=== PATIENT | male | born 1945 | race Caucasian/White ===

== ENCOUNTER 2024-11-24 17:20 | Inpatient (IN) | payer MEDICARE, SELFPAY ==
[2024-11-24 17:37] VITALS: BP 169/112; PULSE 73; RESP 18; TEMP 36.5; O2SAT 96; BMI 29.0
[2024-11-24] MEDS: Haloperidol Lactate 5 MG/ML Vial 2 MG IM (17:47)
--- NOTE | 2024-11-24 17:53 | HP.PCM_ITS ---
HPI - General General Date of Admission: 11/24/24 Chief Complaint: Post stroke debility HPI Narrative LISA KAUFFMAN, is a 79YO M with a PMH of AF, DM, HTN, GERD, CM? (on Entresto and Lasix) history of asthma, osteoarthritis, hyperlipidemia, pacemaker insertion, BPH (on Flomax and Proscar) and KILLIAN (on BIPAP) who presented to [facility] on 11/16/24 with speech difficulties. STAT NC CTB showed no acute findings. CTA of the H&N showed Inhomogenous opacification of the petrous portion of the right internal carotid artery suspicious for soft thrombus and a left MCA occlusion. He was transferred to [facility] for possible thrombectomy. He was outside the window for thrombolytics and he was on Apixaban. Attempted thrombectomy was unsuccessful. CTA H&N at [facility] showed multifocal moderate/severe degrees of calcific stenosis of the anterior and posterior intracranial circulation. It showed a previous R carotid endarterectomy without restenosis. Thrombectomy was attempted but, was unsuccessful. While at [facility] he was intubated for neurogenic and hypoxic respiratory failure. He was extubated within 48 hours. Transthoracic echocardiogram showed an EF of 75% (he was on Entresto and Lasix at the time he presented to [facility] ED) with right ventricular dilation, right atrial dilation and no valvular heart disease. TSH was normal and hemoglobin A1c was 6%. MRI of the brain on 11/21/2024 showed a large acute infarct within the left middle cerebral artery distribution with additional punctate acute infarcts within the bilateral frontal lobes. Review of the PT notes from [facility] states the pt participated well. He requires MAX cues to get his attention. Receptive>expressive aphasia. Pt apparently expressed suicidal ideation while at [facility]. We were NOT informed of this prior to his transfer to [facility] acute rehab and I am only learning of this after he got here. He was seen by a SW who documents that he stated he endorsed he wanted to . He has severe receptive and expressive aphasia and SW documents he had no plan for how he was going to kill himself. He is so aphasic at arrival to rehab that I do not know how he would answer most of the questions he was asked. He is very agitated at arrival and restless. Will not follow commands. BP is markedly elevated due to agitation. [facility] Medical History (Updated 04/18/25 @ 17:[address] Yoanna Camargo, DO) Pacemaker BPH associated with nocturia Right ventricular dilation Right atrial enlargement History of cardiomyopathy Obstructive sleep apnea Hypertension Dyslipidemia Atrial fibrillation, controlled Asthma Arthritis Home Medications ?Medication ?Instructions ?Recorded ?Last Taken ?Type acetaminophen 325 mg capsule 650 mg PO Q6H PRN pain Unknown History amiodarone 400 mg tablet 400 mg PO DAILY heart Unknown History apixaban 5 mg tablet (Eliquis) 5 mg PO BID heart 11/24 Unknown History aspirin 81 mg tablet,delayed 81 mg PO DAILY heart 11/08 03/03 Unknown History release (Ecotrin Low Strength) calcium 600 mg (as carbonate)-vit 1 tab PO DAILY vitam in 11/24/24 Unknown History D3 1,000 unit-vitamin K2 90 mcg tab cholecalciferol (vitamin D3) 25 25 mcg PO DAILY supp 0 11/24/24 Unknown History mcg (1,000 unit) capsule (Vitamin D3) digoxin 250 mcg (0.25 mg) tablet 250 mcg PO DAILY hear t 11/24/24 Unknown History empagliflozin 25 mg tablet 25 mg PO DAILY dm 11/24/24 Unknown History (Jardiance) finasteride 5 mg tablet 5 mg PO DAILY bladder Unknown History furosemide 40 mg tablet 40 mg PO DAILY diuretic 11/08 03/03 Unknown History omeprazole 10 mg capsule,delayed 20 mg PO DAILY gerd 0 11/24/24 Unknown History release polyethylene glycol 3350 8.5 gram 17 g PO DAILY consti pation 11/24/24 Unknown History oral powder packet rosuvastatin 40 mg tablet 40 mg PO QHS cholesterol Unknown History sacubitril 49 mg-valsartan 51 mg 1 tab PO BID heart Unknown History tablet (Entresto) sertraline 20 mg/mL oral 25 mg PO DAILY mood 11/24/24 Unknown History concentrate tamsulosin 0.4 mg capsule 0.4 mg PO DAILY bladder 11/08 03/03 Unknown History Allergy/AdvReac Type Severity Reaction Status Date / Time No Known Allergies Allergy Verified 11/24/24 17:40 Family History unable to obtain unable to obtain (Patient with severe aphasia) Surgical History (Updated 11/25/24 @ 17:[address] Yoanna Camargo DO) History of right-sided carotid endarterectomy Surgical History unable to obtain unable to obtain Social History (Updated 11/25/24 @ 17:[address] Yoanna Camargo, ) household members: significant other housing: house Smoking Status: Never smoker ROS Review of Systems ROS Unobtainable: due to mental status and other Details: Unable to obtain secondary to severe receptive aphasia and severe expressive aphasia due to CVA. Vital Signs Vital Signs Vital Signs: Weight Weight: 232 lb 4 oz Body Mass Index (BMI) 29.0 Indicators for Scoring Admitted with or Primary Diagnosis of CVA/Stroke: Yes Hx of CVA/Stroke: Yes Modified Hamilton Score MRS Score at time of Evaluation: 4-Moderate/severe disability (Due to severe receptive and expressive aphasia grossly impacting his ability to communicate.) NIHSS NIHSS 1a. Level of Consciousness: 0 - Alert; keenly responsive 1b. LOC Questions: 2 - Answers NEITHER question correctly 1c. LOC Commands: 1 - Performs ONE task correctly 2. Best Gaze: 1 - Normal 3. Visual: 0 - No visual loss 4. Facial Palsy: 0 - Normal symmetrical movements 5a. Left Arm: 0 - No drift; arm holds 90 (or 45) degrees for full 10 seconds 5b. Right Arm: 0 - No drift; arm holds 90 (or 45) degrees for full 10 seconds 6a. Left Le - No drift; leg holds 30-degree position for full 5 seconds 6b. Right Le - No drift; leg holds 30-degree position for full 5 seconds 7. Limb Ataxia: 0 - Absent 8. Sensory: 0 - Normal; no sensory loss 9. Best Language: 2 - Severe aphasia; 10. Dysarthria: 1 = [id number] dysarthria; 11. Extinction and Inattention: 0 - No abnormality Total: 6 Stroke Questions Stroke Team Activated: No Physical Exam Const alert and well nourished Constitutional Narrative: not very cooperative and agitated initially. Got more cooperative after 2 mg of Haldol IM. Follows some commands. Able to mimic me when I give visual clues. Appears stated age. HEENT normocephalic and head/scalp atraumatic Eyes PERRL, EOMs intact bilaterally, conjunctivae normal, no scleral icterus and normal visual lugo by confrontation Eyes Narrative: No discharge from the eyes Neck supple General: trachea midline Chest Chest: symmetrical chest wall rise Resp normal respiratory effort, normal air movement and clear to auscultation bilaterally Resp Narrative: Not tachypneic. Respiration is not labored. No cough. Cardio regular rate, regular rhythm, no murmurs, no rub and no gallops Cardio Narrative: Rhythm is regular and rate is within normal limits. EKG shows AV pacing. No ectopy GI normal to inspection, nondistended, normoactive bowel sounds, soft to palpation and non-tender GI Narrative: No guarding with palpation Extremity no calf tenderness Extremity Narrative: No peripheral edema General Extremity: Negative for clubbing or cyanosis Skin no rashes or lesions noted, no wounds and no jaundice Neuro Neuro Narrative: He is alert and able to follow some commands, especially if given visual cues of what I want him to do. Moving all extremities. Able to get up from the bed without assistance . Impulsive. No visual field cuts observed. Cranial nerves II through XII are grossly intact. Does not seem to have sensory loss. Not ataxic. Exam is limited by his inability to follow commands and thus participate with exam. Primary problem seems to be expressive/receptive aphasia which is severe. Psych Psych Narrative: Very agitated at admission. His tells me he has been having visual hallucinations but no auditory hallucinations. Very impulsive. Required sedation at presentation to acute rehab. His tells me that he has been irritable and agitated with her the past 2 days. Attitude: agitated Activity / Motor Behavior: fidgetting and restless Results Lab / Micro Data 11/25/24 06:15 11/25/24 06:15 Assessment & Plan Assessment/Plan (1) Debility: (2) Diabetes mellitus type 2 in nonobese: (3) Ischemic cerebrovascular accident (CVA): (4) Aphasia complicating stroke: (5) History of right-sided carotid endarterectomy: (6) Agitation requiring sedation protocol: (7) History of cardiomyopathy: (8) Right atrial enlargement: (9) Right ventricular dilation: (10) Obstructive sleep apnea: (11) Hypertension: QUALIFIERS: Hypertension type: primary hypertension Qualified Code(s): I10 - Essential (primary) hypertension (12) Dyslipidemia: (13) Atrial fibrillation, controlled: (14) GERD (gastroesophageal reflux disease): QUALIFIERS: Esophagitis presence: esophagitis presence not specified Qualified Code(s): K21.9 - Gastro-esophageal reflux disease without esophagitis (15) BPH associated with nocturia: (16) Pacemaker: (17) Cystitis without hematuria: PLAN: More likely than not secondary to Yeager catheter insertion at the previous institution. (18) Chronic anticoagulation: PLAN: Plan PLAN PT for gait stability OT for ADL's ST for evaluation Analgesics as needed Bowel protocol Fall precautions Assess for Anxiety/Depression GI prophylaxis -pantoprazole DVT prophylaxis-continue apixaban Follow up with cardiology, PCP, neurology following DC from [facility] AM lab including CMP, CBC, Mag, digoxin and Phos Seroquel 25 mg p.o. nightly Haldol 1 mg IM every 6 hours as needed severe agitation Will obtain a UA due to urinary frequency and increased agitation in the past 2 days. Obtain records from Dr. Royal at [facility] Postvoid residuals x 3. Continue Flomax and Proscar Place in a high low bad because he is impulsive and getting up without calling for assistance. Bed alarm and chair alarms. 75 minutes spent reviewing past diagnostic tests, lab results, vital sign trends, medical history, medications, all additional paperwork sent by the previous hospital, and ordering medications, examining the the patient and completing documentation.
--- NOTE | 2024-11-24 17:57 | EKG12_ITS ---
Test Reason : DYSRHYTHMIA Blood Pressure : */* mmHG Vent. Rate : 71 BPM Atrial Rate : 71 BPM P-R Int : 148 ms QRS Dur : 198 ms QT Int : 482 ms P-R-T Axes : * 230 42 degrees QTcB Int : 523 ms AV dual-paced rhythm Abnormal ECG No previous ECGs available Confirmed by MYNOR YOUNG, LENA ([id number]), metropolitan editor MARY SKINNER ([id number]) on 11/28/2024 10:38:33 AM Referred By: RIVERA Confirmed By: LENA LOWE MD
--- NOTE | 2024-11-24 18:11 | NURSING ---
Pt. arrived to unit very frustrated and aggressive. This nurse and RN talked to pt. and explained why he was here. Pt. continuously stated I want to in response to any of nurses question. Physician notified of pt. behavior. N.O. for IM Haldol. Medication given in R Deltoid. This nurse sat with pt. and attempted to reorientate and help pt. relax, following administration of medication. Medication ineffective with helping pt. relax and relieve anxiety. Physician ordered for peripheral line to be started on pt. This nurse explained to pt. procedure and attempted to start peripheral IV. Pt. pulled arm away from this nurse and stated No, I want to . This nurse remained at pt. side during this time. Pt. and friend entered pt. room shortly after. Pt. demeanor and behavior changed. Pt. appeared to be no longer agitated and stated no intent of or harm to self.
[2024-11-24 19:32] VITALS: BP 141/78; PULSE 69
[2024-11-24 21:00] VITALS: BP 133/80; PULSE 70; RESP 17; TEMP 36.7; O2SAT 94
[2024-11-24] MEDS: Atorvastatin Calcium 80 MG Tablet PO (21:35)
[2024-11-24] MEDS: NYSTATIN 500,000 UNIT/5 ML UDC 500000 UNIT PO (21:35)
[2024-11-24] MEDS: Senna/Docusate Sodium 1 Tablet 2 TABLET PO (21:35)
[2024-11-24] MEDS: APIXABAN 5 MG TABLET PO (21:35)
[2024-11-24] MEDS: QUEtiapine 25 MG Tablet PO (21:35)
[2024-11-24] MEDS: SACUBITRIL/VALSARTAN 49-51 MG TABLET 1 EACH PO (21:36)
[2024-11-25 06:00] VITALS: BP 146/100; PULSE 94; RESP 16; TEMP 36.5; O2SAT 97
--- NOTE | 2024-11-25 06:09 | NURSING ---
Pt refused BS check hs. This a.m. when pt was taken to for toileting, pt refused to allow a urine catch for urinalysis. Pt tossed container and said he wouldn't do it. Pt became aggressive at bedtime when up for toileting. Pt has refused gait belt despite staff explaining the safety protocol on the rehab unit. Pt has pushed wheeled walker to the side with defiance.
[2024-11-25 06:42] LABS: Hematocrit 40.4 % (40-54); Hemoglobin 13.2 g/dL (13.0-16.5); Mean Corp Hgb Conc 32.7 g/dL (32-36); Mean Corpuscular Hgb 28.6 pg (27.0-32.0); Mean Corpuscular Volume 87.4 fL (80-94); Mean Platelet Vol. 9.6 fl (6.2-12.0); Platelet Count 177 K/mm3 (150-450); RBC Distribution Width CV 14.9 % (11.6-14.6); RBC Distribution Width SD 48.3 fl (35.1-43.9); Red Blood Count 4.62 M/mm3 (4.6-6.2); White Blood Count 6.3 K/mm3 (4.4-11.0)
[2024-11-25 07:13] LABS: ALB/GLOB Ratio 1.4 RATIO (0.9-2.4); AST(SGOT) 22 U/L (<=37); Alanine Aminotransfer ALT/SGPT 15 U/L (<=46); Albumin, Serum 3.8 g/dL (3.4-4.8); Alkaline Phosphatase 91 U/L (40-129); Anion Gap 12 (5-15); BUN 23 mg/dL (4-19); BUN/Creat Ratio 17.7 RATIO (10-20); Calcium,Total 8.7 mg/dL (7.6-11.0); Carbon Dioxide 23.5 mmol/L (21.0-32.0); Chloride 100 mmol/L (98-108); Creatinine, Serum 1.28 mg/dL (0.70-1.20); EST Glomerular Filtration Rate 56 (>60); Estimated Creatinine Clearance 59.43 ml/min (50-250); Globulin 2.8 g/dL (2.2-4.2); Glucose 75 mg/dL (70-99); Magnesium 2.2 mg/dL (1.5-2.2); Phosphorus 3.1 mg/dL (2.7-4.5); Potassium 3.4 mmol/L (3.3-5.1); Protein, Total 6.7 g/dL (5.9-8.4); Sodium Level 136 mmol/L (133-145); Total Bilirubin 1.18 mg/dL (0.00-1.30)
[2024-11-25 07:28] LABS: Bedside Glucose 77 mg/dL (74-106)
[2024-11-25] MEDS: NYSTATIN 500,000 UNIT/5 ML UDC 500000 UNIT PO ×4 (09:02→20:27)
[2024-11-25] MEDS: Furosemide 40 MG Tablet PO (09:02)
[2024-11-25] MEDS: Polyethylene Glycol 3350 17 GM PACKET PO (09:02)
[2024-11-25] MEDS: Senna/Docusate Sodium 1 Tablet 2 TABLET PO ×2 (09:02→20:26)
[2024-11-25] MEDS: Sertraline 50 MG Tablet 25 MG PO (09:02)
[2024-11-25] MEDS: Pantoprazole Sodium 20 MG Tablet PO (09:03)
[2024-11-25] MEDS: Tamsulosin HCl 0.4 MG Capsule PO (09:03)
[2024-11-25] MEDS: Amiodarone 200 MG Tablet 400 MG PO (09:03)
[2024-11-25] MEDS: APIXABAN 5 MG TABLET PO ×2 (09:03→20:27)
[2024-11-25] MEDS: Cholecalciferol (VIT D3) 25 MCG TABLET (1,000 UNITS) PO (09:03)
[2024-11-25] MEDS: Empagliflozin 25 MG Tablet PO (09:03)
[2024-11-25] MEDS: Calcium Carb/Vitamin D 1 TABLET Tablet PO (09:03)
[2024-11-25] MEDS: Finasteride 5 MG Tablet PO (09:03)
[2024-11-25] MEDS: Digoxin 250 MCG Tablet PO (09:03)
[2024-11-25] MEDS: SACUBITRIL/VALSARTAN 49-51 MG TABLET 1 EACH PO ×2 (09:03→20:27)
[2024-11-25] MEDS: Aspirin E.C. 81 MG Tablet PO (09:03)
[2024-11-25] MEDS: QUEtiapine 25 MG Tablet 12.5 MG PO (09:04)
--- NOTE | 2024-11-25 09:50 | CASEMGMT ---
Social Work SW left with to complete initial assessment d/t pt's severe expressive and receptive aphasia. Pt received hand off from - nursing that d/t pt's constant statements of wanting to , a Barre Suicide Assessment was completed and was a low risk - noting to plan/intent/past attempts. D/t pt's severe cognition and speech deficits. SW and staff will continue to monitor as pt admitted with aggressive and agitated behavior. spoke with upon admission and informed her that if pt is unable to resolve behavior, he will need to transfer to another facility that can better meet his needs. Elizabeth Barnett EQUAL OPPORTUNITY REPRESENTATIVE MOLD BLOWER
--- NOTE | 2024-11-25 09:56 | REHABEVAL_ITS ---
Admission Information Primary Diagnosis:: Post stroke debility Status Changes from Prescreening?: Medical (We were not informed by the previous hospital that the patient had expressed a desire to kill himself. I found this out ONLY after he arrived on rehab. He was very agitated at admission and required sedation. ) Actual Problem List:: Cognitve Impr/Memory Loss, Depression (On sertraline at admission to rehab.), Alteration in Sleep, Mobility Impaired, Self Care Deficit, Know.Dfct of Medicaitons, BP, Hypertension and Alteration-Leisure Activ. Potential Problem List:: DVT, Bleeding, Infection, UTI, Aspiration, Falls, Skin Integrity and Depression Risk of Complications DVT: BORIS Hose and - (Apixaban) Bleeding: Monitor Lab Values, Nursing to Teach Precautions for anti-coagulation therapy., Wound, if applicable, to be assessed every shift. and Stroke patients assessed for lethargy or change in status. Infection: Clinical Staff to Monitor for S/S of infection: and S/S of infection include fever, redness, warmth, etc. Urinary Tract Infection: Monitor for frequency, burning, discomfort, or incontinence. and Nursing will obtain urine sample for urinalysis and C&S when ordered. Aspiration: Clinical staff will monitor for coughing, drooling, congestion., Speech will evaluate swallowing and dsyphasia. and Nursing will monitor patient swallowing during meals. Falls: Patient will be evaluated for Fall Precautions and Patient will be placed on Fall Precautions as indicated per protocol. Skin Breakdown: Nursing will assess skin daily using assessment tool. and Nursing will place on Skin Breakdown Precautions as indicated. Pain: Clinical staff will assess patient's pain level per protocol., Medications will be given, if needed, and the pain level reassessed. and Other methods: Massage, distraction, decrease stimulus, etc. used PRN. Plan of Care Patient requires physician specializing in physical medicine and rehab oversight to provide close medical supervision of rehab issues including: Pain Management, Sleep Problems, Bowel and Bladder, Medical and co-morbidity Management, DVT prophylaxis, Rehabilitation Leadership and Coordination of treatment team Patient needs Physical Therapy: For a minimum of 1 hour and At least 5 out of 7 days Patient needs Physical Therapy to improve:: Mobility, Strengthening, Transfers, Stretching, ROM, Endurance, Stairs, Gait and Balance Patient needs Occupational Therapy: For a minimum of 1 hour and At least 5 out of 7 days Patient needs Occupational Therapy to improve ADL's incl.: Eating, Grooming, Bathing, Dressing, Toileting, Toilet transfers, Community Reintegration, Higher functioning activities, Household tasks, Adaptive Equipment, Splinting and Other activities as determined Patient requires speech therapy: For a minimum of 1 hour and At least 5 out of 7 days Patient requires speech therapy for: Swallowing, Cognition, Language Skills and Compensatory Strategies Patient requires 24/7 Rehabilitation Nursing for: Pain Issues, Identifying and preventing risk factors, Monitoring and reporting current medical conditions, Assisting with ambulation, transfer, and all ADL's, Teaching patients about disease process and medications, Family teaching, Providing safe environment, Bowel and Bladder Issues, Skin integrity and Medication Management Patient needs Lead Quality Technician/ Case Management for: Discharge Planning, Arranging Home Equipment or Services and Family Interventions Patient needs Dietary and Nutrition Services for: Adequate Nutrition, Nutritional Supplements and Nutritional Education Goals Goals Patient will remain: free from falls Patient will perform eating at: MOD I level of assist. Patient will perform bed mobility at: MOD I level of assist. Patient will complete transfers from bed to chair at: - (Supervision) Patient will ambulate: - (500 feet on various surfaces at supervision) Patient will complete upper body dressing at: MOD I level of assist. Patient will complete lower body dressing at: MOD I level of assist. (With the equipment as needed.) Patient will complete toilet transfer at: MOD I level of assist. Patient will complete toileting at: MOD I level of assist. Patient will perform bathing at: MOD I level of assist. (With adaptive equipment as needed for lower body dressing) Patient will perform Tub/Shower transfer at: - (Supervision) Patient will complete grooming at: MOD I level of assist. Patient will achieve: - (13 steps with 2 handrails at standby assist) Patient will have pain level of: of 3 or less Patient's skin will: remain intact Patient will receive: adequate nutrition. Discharge Planning Pt Prognosis for Sig. Practical Improv. w/in Reasonable Time: Good Estimated Length of stay (days): 21 Anticipated D/C Destination: Home with Outpt Therapy Was Preadmission Assessment Accurate?: Yes
[2024-11-25 10:04] VITALS: BP 132/84
[2024-11-25 10:49] LABS: Digoxin Level 1.27 ng/mL (0.00-2.00)
[2024-11-25 11:33] LABS: Bedside Glucose 91 mg/dL (74-106)
[2024-11-25 13:54] LABS: Mucous, Urine 0 SEEN /hpf (<or=2+); Red Blood Cells-Urine 0 SEEN /hpf (0-5); Squamous Epithelial Cells - UA 0 SEEN /hpf (0-5)
[2024-11-25 14:44] LABS: Color, Urine Yellow (Yellow); Glucose, Dipstick 1000 mg/dl (Normal); Ketone-Dipstick Negative (Negative); Leukocyte Esterase-Dipstick 500 /ul (Negative); Nitrite-Dipstick Negative (Negative); Occult Blood-Urine 25 /ul (Negative); Protein-Dipstick 30 mg/dl (Negative); Specific Gravity, Urine 1.015 (1.002-1.030); Urine Bilirubin Dipstick Negative (Negative); Urine Clarity Sl. Cloudy (Clear); Urine Urobilinogen 8 mg/dl (Normal)
[2024-11-25 14:59] LABS: White Blood Cells 50-100 SEEN /hpf (0-5)
[2024-11-25 15:03] LABS: Coarse Granular Cast 0-5 SEEN /lpf (0-5 /lpf)
[2024-11-25 15:04] LABS: Bacteria 1+ /hpf (None Seen)
[2024-11-25 15:05] LABS: Amorphous Sediment 1+ URATE
[2024-11-25 16:59] LABS: Bedside Glucose 150 mg/dL (74-106)
[2024-11-25 17:33] VITALS: BP 126/83; PULSE 70; RESP 18; TEMP 36.4; O2SAT 94
--- NOTE | 2024-11-25 17:39 | PN_ITS ---
Subjective Subjective Afebrile Blood pressure has ranged from 126/83 to 169/112 at admission. He was very agitated at that time and needed to be sedated. Heart rate is within normal limits Maintaining appropriate oxygen saturation on room air Nursing reports he slept pretty well last night after Seroquel. This morning he was very impulsive and through the urine hat across the room. Refused to give a urine specimen last night and refused accucheck. Did not need a sitter after Haldol and Seroquel. FBS was only 77 this morning. Severe oral fluid intake today. Has eaten 75 to 100% of breakfast and lunch today. Was given 12.5 mg Seroquel this AM for agitation and he was cooperative with therapists and with nursing when they did accuchecks and a strainght for urine. All lab from this morning was personally reviewed. CBC is unremarkable. Potassium is low normal at 3.4. The BUN is 23 and the creatinine is 1.28 and we do not know his baseline. GFR today is 56. Calcium phosphorus and magnesium are all normal. LFTs are normal. The urine obtained by straight cath showed 50-100 WBCs with 1+ bacteria. There were no red blood cells. There was proteinuria. Urine culture has been ordered. Objective Data Objective Data Vital Signs: Vital Signs Temp Pulse Resp BP Pulse Ox O2 Del Method 97.6 F L 70 18 126/83 H 94 Room Air 11/25/24 17:33 11/25/24 17:33 11/25/24 17:33 11/25/24 17:33 11/25/24 17:33 11/25/24 17:33 Oxygen Delivery Method Room Air Weight: 232 lb 4 oz Body Mass Index (BMI) 29.0 Intake & Output: Intake and Output for Last 24 Hours 11/23/24 11/24/24 11/25/24 23:59 23:59 23:59 Intake Total 60 / 60 1290 / 1290 Output Total 400 / 400 Balance 60 / 60 890 / 890 Lab / Micro Data 11/25/24 06:15 11/25/24 06:15 Labs: Laboratory Results - last 24 hr 11/25/24 06:05: POC Glucose 77 11/25/24 06:15: WBC 6.3, RBC 4.62, Hgb 13.2, Hct 40.4, MCV 87.4, MCH 28.6, MCHC 32.7, RDW Std Deviation 48.3 H, RDW Coeff of [place]ile[place] 14.9 H, Plt Count 177, MPV 9.6, Sodium 136, Potassium 3.4, Chloride 100, Carbon Dioxide 23.5, Anion Gap 12, BUN 23 H, Creatinine 1.28 H, Estim Creat Clear Calc 59.43, Est GFR (MDRD) Non-Af 56 L, BUN/Creatinine Ratio 17.7, Glucose 75, Calcium 8.7, Phosphorus 3.1, Magnesium 2.2, Total Bilirubin 1.18, AST 22, ALT 15, Alkaline Phosphatase 91, Total Protein 6.7, Albumin 3.8, Globulin 2.8, Albumin/Globulin Ratio 1.4, Digoxin 1.27 11/25/24 11:14: POC Glucose 91 11/25/24 13:45: Urine Color Yellow, Urine Clarity Sl. Cloudy, Urine pH 6.0, Ur Specific [place] 1.015, Urine Protein 30 H, Urine Glucose (UA) 1000 H, Urine Ketones Negative, Urine Occult Blood 25 H, Urine Nitrite Negative, Urine Bilirubin Negative, Urine Urobilinogen 8 H, Ur Leukocyte Esterase 500 H, Urine RBC 0 SEEN, Urine WBC 50-100 SEEN, Ur Squamous Epith Cells 0 SEEN, Amorphous Sediment 1+ URATE, Urine Bacteria 1+, Coarse Granular Casts 0-5 SEEN, Urine Mucus 0 SEEN 11/25/24 16:37: POC Glucose 150 H Physical Exam Const alert Constitutional Narrative: Much more cooperative today. Resp clear to auscultation bilaterally Effort and Inspection: Negative for tachypneic or respiratory distress Cardio regular rate, regular rhythm, no murmurs and no gallops GI normal to inspection, nondistended, normoactive bowel sounds, soft to palpation and non-tender Extremity no calf tenderness General Extremity: Negative for edema Skin Rashes: no rashes Assessment & Plan Assessment/Plan (1) Debility: (2) Diabetes mellitus type 2 in nonobese: (3) Ischemic cerebrovascular accident (CVA): (4) Aphasia complicating stroke: (5) History of right-sided carotid endarterectomy: (6) Agitation requiring sedation protocol: (7) History of cardiomyopathy: (8) Right atrial enlargement: (9) Right ventricular dilation: (10) Obstructive sleep apnea: (11) Hypertension: QUALIFIERS: Hypertension type: primary hypertension Qualified Code(s): I10 - Essential (primary) hypertension (12) Dyslipidemia: (13) Atrial fibrillation, controlled: (14) GERD (gastroesophageal reflux disease): QUALIFIERS: Esophagitis presence: esophagitis presence not specified Qualified Code(s): K21.9 - Gastro-esophageal reflux disease without esophagitis (15) BPH associated with nocturia: (16) Pacemaker: (17) Cystitis without hematuria: PLAN: More likely than not secondary to Yeager catheter insertion at the previous institution. (18) Chronic anticoagulation: PLAN: Plan 1. Continue therapy 2. Continue Seroquel 25 mg p.o. nightly and 12.5 mg every morning. Will attempt to taper in a few days if he continues to be cooperative 3. Start Augmentin suspension 875 mg twice daily and await the results of the urine culture. He has had 1 postvoid residual and it was 220 cc. Will obtain at least 2 more postvoid residuals 4. Decrease Jardiance to 10 mg daily. Need to avoid hypoglycemia and the fasting blood sugar was only 77 today recent hemoglobin A1c was only 6% and in this age range there is no need to keep it that low. Continue Accu-Cheks AC and at bedtime. Charges/Coding Visit Charges Inpatient E&M: 09743 Subs Hosp L1
[2024-11-25 20:25] VITALS: PULSE 70; RESP 18; O2SAT 94
[2024-11-25] MEDS: QUEtiapine 25 MG Tablet PO (20:27)
[2024-11-25] MEDS: Atorvastatin Calcium 80 MG Tablet PO (20:27)
[2024-11-25 21:27] LABS: Bedside Glucose 132 mg/dL (74-106)
[2024-11-26 06:00] VITALS: BP 115/76; PULSE 69; RESP 16; TEMP 36.3; O2SAT 95
[2024-11-26] MEDS: QUEtiapine 25 MG Tablet 12.5 MG PO (06:30)
[2024-11-26 06:51] LABS: Bedside Glucose 103 mg/dL (74-106)
[2024-11-26] MEDS: Finasteride 5 MG Tablet PO (08:07)
[2024-11-26] MEDS: APIXABAN 5 MG TABLET PO ×2 (08:07→20:45)
[2024-11-26] MEDS: Senna/Docusate Sodium 1 Tablet 2 TABLET PO (08:07)
[2024-11-26] MEDS: Cholecalciferol (VIT D3) 25 MCG TABLET (1,000 UNITS) PO (08:07)
[2024-11-26] MEDS: Empagliflozin 10 MG Tablet PO (08:07)
[2024-11-26] MEDS: SACUBITRIL/VALSARTAN 49-51 MG TABLET 1 EACH PO ×2 (08:07→20:45)
[2024-11-26] MEDS: Calcium Carb/Vitamin D 1 TABLET Tablet PO (08:07)
[2024-11-26] MEDS: Tamsulosin HCl 0.4 MG Capsule PO (08:07)
[2024-11-26] MEDS: Digoxin 250 MCG Tablet PO (08:07)
[2024-11-26] MEDS: Aspirin E.C. 81 MG Tablet PO (08:07)
[2024-11-26] MEDS: Amiodarone 200 MG Tablet 400 MG PO (08:08)
[2024-11-26] MEDS: Furosemide 40 MG Tablet PO (08:08)
[2024-11-26] MEDS: NYSTATIN 500,000 UNIT/5 ML UDC 500000 UNIT PO ×4 (08:08→20:45)
[2024-11-26] MEDS: Pantoprazole Sodium 20 MG Tablet PO (08:09)
[2024-11-26] MEDS: Sertraline 50 MG Tablet 25 MG PO (08:10)
[2024-11-26] MEDS: Amox/Clav 400mg/5ml Susp 875 MG PO ×2 (08:12→17:17)
[2024-11-26] MEDS: Polyethylene Glycol 3350 17 GM PACKET PO (08:20)
[2024-11-26 08:22] VITALS: BP 99/61; PULSE 71
[2024-11-26 08:30] VITALS: O2SAT 94
--- NOTE | 2024-11-26 08:30 | CPS ---
Addendum entered and electronically signed by Rose Mary Daley, BEVELER 11/26/24 09:08: He got the device while at [facility]. Original Note: Pt already has an Incentive Spirometer and knows how to use it.
[2024-11-26 12:01] LABS: Bedside Glucose 109 mg/dL (74-106)
[2024-11-26 18:00] VITALS: BP 119/77; PULSE 70; RESP 16; TEMP 37.1; O2SAT 93
[2024-11-26] MEDS: QUEtiapine 25 MG Tablet PO (20:44)
[2024-11-26] MEDS: Arthritis Pain Compound 60 CLICK TUBE TOPICAL (20:44)
[2024-11-26] MEDS: Atorvastatin Calcium 80 MG Tablet PO (20:45)
[2024-11-26 22:33] LABS: Bedside Glucose 111 mg/dL (74-106)
[2024-11-27] MEDS: QUEtiapine 25 MG Tablet 12.5 MG PO (06:12)
[2024-11-27 06:15] VITALS: BP 107/68; PULSE 71; RESP 17; TEMP 36.4; O2SAT 92
[2024-11-27 07:01] LABS: Bedside Glucose 111 mg/dL (74-106)
[2024-11-27] MEDS: Pantoprazole Sodium 20 MG Tablet PO (07:36)
[2024-11-27] MEDS: Finasteride 5 MG Tablet PO (07:36)
[2024-11-27] MEDS: APIXABAN 5 MG TABLET PO ×2 (07:36→19:58)
[2024-11-27] MEDS: Tamsulosin HCl 0.4 MG Capsule PO (07:36)
[2024-11-27] MEDS: Calcium Carb/Vitamin D 1 TABLET Tablet PO (07:36)
[2024-11-27] MEDS: Empagliflozin 10 MG Tablet PO (07:36)
[2024-11-27] MEDS: Digoxin 250 MCG Tablet PO (07:36)
[2024-11-27] MEDS: Cholecalciferol (VIT D3) 25 MCG TABLET (1,000 UNITS) PO (07:36)
[2024-11-27] MEDS: Sertraline 50 MG Tablet 25 MG PO (07:37)
[2024-11-27] MEDS: SACUBITRIL/VALSARTAN 49-51 MG TABLET 1 EACH PO ×2 (07:37→19:57)
[2024-11-27] MEDS: Aspirin E.C. 81 MG Tablet PO (07:38)
[2024-11-27] MEDS: Furosemide 40 MG Tablet PO (07:38)
[2024-11-27] MEDS: Amiodarone 200 MG Tablet 400 MG PO (07:38)
[2024-11-27] MEDS: Amox/Clav 400mg/5ml Susp 875 MG PO ×2 (07:39→16:43)
[2024-11-27 08:15] VITALS: O2SAT 92
[2024-11-27] MEDS: NYSTATIN 500,000 UNIT/5 ML UDC 500000 UNIT PO (11:07)
[2024-11-27 11:45] LABS: Bedside Glucose 141 mg/dL (74-106)
[2024-11-27 16:24] LABS: Bedside Glucose 127 mg/dL (74-106)
[2024-11-27 18:00] VITALS: BP 108/75; PULSE 70; RESP 17; TEMP 36.3; O2SAT 96
[2024-11-27] MEDS: Atorvastatin Calcium 80 MG Tablet PO (19:57)
[2024-11-27] MEDS: QUEtiapine 25 MG Tablet PO (19:58)
[2024-11-27 20:20] LABS: Bedside Glucose 139 mg/dL (74-106)
--- NOTE | 2024-11-27 20:45 | NURSING ---
Patient requested HS meds early and provided.
[2024-11-27 21:00] VITALS: BP 114/75; PULSE 71
[2024-11-28] VITALS (11 sets, daily range): BP systolic 69–137; BP diastolic 40–89; PULSE 69–80; RESP 16–18; TEMP 35.8–36.8; O2SAT 91–98
[2024-11-28] MEDS: QUEtiapine 25 MG Tablet 12.5 MG PO (06:28)
[2024-11-28 07:07] LABS: Bedside Glucose 103 mg/dL (74-106)
--- NOTE | 2024-11-28 08:08 | PCM.PROGNOTE ---
Subjective Subjective Day #4 of 7 ampicillin for Enterococcus faecalis urinary tract infection/cystitis. Miguel Angel was seen on team rounds today. Miguel Angel's Courtney was present in the room. Afebrile VSS - Maintaining appropriate oxygen saturation on RA Oral intake - FOOD fair to good. Refused lunch yesterday but then ate 50 to 74% of his dinner. FLUIDS fair The blood sugar record was reviewed and blood sugars are well-controlled with no hypoglycemia. Jardiance was decreased to 10 mg daily last week. Discussed with nursing -refusing all meds this morning.....spit them out Reviewed the THERAPY notes -nursing reports he refused therapy on Thursday....intermittently refusing therapy. Medication list reviewed. Urine culture grew Enterococcus faecalis. It is sensitive to ampicillin. It is resistant to gentamicin and tetracycline. Tells me that he just wants to today. Was started on Sertraline on Thursday. Not cooperating. Eating is erratic. Slept well last night after Seroquel but, refusing meds today. Does not appear to be in any distress. He was laying in the bed with his eyes closed when I entered the room. Not agitated. Not restless. Objective Data Objective Data Vital Signs: Vital Signs Temp Pulse Resp BP Pulse Ox O2 Del Method 98 F 70 16 131/81 H 97 Room Air 11/28/24 06:36 11/28/24 06:36 11/28/24 06:36 11/28/24 06:36 11/28/24 06:44 11/28/24 06:44 Oxygen Delivery Method Room Air Weight: 232 lb 4 oz Body Mass Index (BMI) 29.0 Intake & Output: Intake and Output for Last 24 Hours 11/26/24 11/27/24 11/28/24 23:59 23:59 23:59 Intake Total 960 / 960 1160 / 1160 Output Total 1000 / 1000 Balance 960 / 960 160 / 160 Lab / Micro Data 11/25/24 06:15 11/25/24 06:15 Labs: Laboratory Results - last 24 hr 11/27/24 11:27: POC Glucose 141 H 11/27/24 16:01: POC Glucose 127 H 11/27/24 20:01: POC Glucose 139 H 11/28/24 06:32: POC Glucose 103 Micro: Microbiology 11/25/24 13:45 Urine Catheter - Catheter Urine Culture - Final Enterococcus faecalis Physical Exam Const Constitutional Narrative: Lying in bed with his eyes closed but arouses easily. Telling me he wants to . Poor cooperation with therapy today. Not restless or agitated now. Resp clear to auscultation bilaterally Resp Narrative: Patent bed without tachypnea or labored respirations. Cardio regular rate, regular rhythm and no gallops GI normal to inspection, nondistended, normoactive bowel sounds, soft to palpation and non-tender GI Narrative: No guarding with palpation Extremity Extremity Narrative: Did not withdraw with compression of the calf or dorsiflexion of the foot. General Extremity: Negative for edema Skin Rashes: no rashes Neuro Neuro Narrative: Severe receptive and expressive aphasia. Did not participate with speech today. Psych Mood & Affect: depressed Assessment & Plan Assessment/Plan (1) Debility: (2) Diabetes mellitus type 2 in nonobese: (3) Ischemic cerebrovascular accident (CVA): (4) Aphasia complicating stroke: (5) History of right-sided carotid endarterectomy: (6) Agitation requiring sedation protocol: (7) History of cardiomyopathy: (8) Right atrial enlargement: (9) Right ventricular dilation: (10) Obstructive sleep apnea: (11) Hypertension: QUALIFIERS: Hypertension type: primary hypertension Qualified Code(s): I10 - Essential (primary) hypertension (12) Dyslipidemia: (13) Atrial fibrillation, controlled: (14) GERD (gastroesophageal reflux disease): QUALIFIERS: Esophagitis presence: esophagitis presence not specified Qualified Code(s): K21.9 - Gastro-esophageal reflux disease without esophagitis (15) BPH associated with nocturia: (16) Pacemaker: (17) Cystitis without hematuria: PLAN: More likely than not secondary to Yeager catheter insertion at the previous institution. (18) Chronic anticoagulation: (19) Acute depression: PLAN: Plan 1. Continue therapy 2. Increase sertraline to 50 mg daily 3. Continue Seroquel as previously ordered he is cooperative sometimes and sometimes is doing therapy. Did not really do anything with ST today.......getting very frustrated. 4. D/W Courtney that he may be cut by insurance because he is not able to do 3 hours of therapy daily. We talked about options/plans for DC if he gets cut. We are going to have Courtney come in tomorrow and be with Miguel Angel when ST is working with him........hopefully he will be more cooperative. We also discussed a geropsych referral to get depression under better control. He would do OK with going home as far as PT/OT concerned but, would need 24/7 supervision. SW to give Courtney options for assistance with home care. He is ambulating without an AD currently. I do not feel he is going to make much progress with therapy if the depression is not controlled. Decreased appetite, sleeping more, poor articipation with therapy, saying he wants to . 5. Hold the AM dose of Seroquel tomorrow. Could try switching to Risperdal for less sedation if decreasing the Seroquel to once a day fails. Charges/Coding Visit Charges Inpatient E&M: 26003 Subs Hosp L2
--- NOTE | 2024-11-28 11:10 | CASEMGMT ---
Social Work SW phoned to complete initial assessment and broach DC plans. Per Dr and IDT, pt is still unable to cooperate with nursing care and therapy, and requesting pt DC to SNF. SW completed assessment. stated she does not know where the advance directives are located to provide copies, but she is HCPOA. Pt is not able to complete new documents. stated pt drove, managed meds and finances prior. SW discussed criteria for RU, i.e. 3 hours/day of therapy. Despite medication adjustment from , IDT is recommending pt DC to SNF. Pt is not appropriate for this unit for continued stay. Nursing reported pt is spitting out his pills, too. SW educated to [facility] insurance NRD 11/29, and they too, may issue DC date given pt is not appropriate for the unit. Explained this worker's role to assist with DC planing. SW offered to provide list of SNFs that are INN with pt's insurance, though insurance can deny that stay as well. inquired about taking pt home. SW offered for to hear Team's report at meeting this afternoon before making a DC decision. However, DC home is an option, as SNF is only a recommendation. SW offered resources for to hire assistance in the home, and this worker can coordinate skilled HHC. appreciative of information and will await Team meeting for further discussion. SW will continue to follow. Elizabeth Barnett MSW MIXER OPERATOR TABLETS
[2024-11-28 12:01] LABS: Bedside Glucose 103 mg/dL (74-106)
--- NOTE | 2024-11-28 12:48 | CASEMGMT ---
Social Work IDT met with patient and for Team meeting. Discussed patient's progress in PT/OT/ST/SN. Educated to [facility] insurance with NRD 11/29 and continued stay is not guaranteed with each review. spoke with about pt having a better day today with therapy, but still to plan for DC. Insurance may not approve continued stay. IDT discussed home vs SNF. Pt is physically functioning well, but needs 24/7 CGA for safety, physically, cognitively and for language in the case of an emergency. Explained in detail option for home option - provided resources for private duty home care, [facility] and medical alert; skilled HHC, anticipated duration and frequency. Explained in detail SNF - insurance can approve, which is skilled therapy and explained anticipated duration and frequency, and if insurance denies, pt can pay OOP for room and board, and bill part B for therapies. noted that if pt is not cooperating or participating in services at this level, he will likely not cooperate at a SNF, and she would opt to take pt home. then [facility] to [facility] in managing pt's depression, to potentially assist with cooperation and participation in a rehab setting. SW educated to insurance coverage, options are not local, they do not do therapy, but focus on intensive mental health. Once pt is stabilized, he can be discharged to home or a SNF. unsure about the option but agreeable to send referrals to see if pt is accepted and what location. does not drive out of town and that is not ideal for him to not be local. SW acknowledged. SW explained for to process information, begin contacting [employer], while this worker refers to [facility], and can present options to for her to make a final decision. Explained can deny, even after getting an acceptance. expressed understanding. SW to remain available to support and assist with DC planning. appreciative. Elizabeth Barnett BIOLOGICAL SCIENCE AIDE TEAM LEADER SURGERY
--- NOTE | 2024-11-28 15:59 | CASEMGMT ---
Addendum entered by Elizabeth Barnett 11/28/24 16:52: [facility] [place] [facility] central intake contacted this worker asking additional medical questions. Will continue to review and notify this worker of acceptance/denial. Original Note: Social Work SW began contacting [facility]. Assurance [facility] is full; [facility] is full, but [facility] has beds; [facility] is full. Referrals faxed to [facility] and [facility]. Will await outcomes before pursuing other facilities. Elizabeth Barnett INDUSTRIAL LOCOMOTIVE OPERATOR REHABILITATION CASEWORKER
[2024-11-28 16:57] LABS: Bedside Glucose 93 mg/dL (74-106)
[2024-11-28] MEDS: Arthritis Pain Compound 60 CLICK TUBE TOPICAL (19:57)
[2024-11-28] MEDS: QUEtiapine 25 MG Tablet PO (19:58)
[2024-11-28] MEDS: APIXABAN 5 MG TABLET PO (19:58)
[2024-11-28] MEDS: SACUBITRIL/VALSARTAN 49-51 MG TABLET 1 EACH PO (19:59)
[2024-11-28] MEDS: Senna/Docusate Sodium 1 Tablet 2 TABLET PO (19:59)
[2024-11-28] MEDS: Atorvastatin Calcium 80 MG Tablet PO (20:01)
[2024-11-28] MEDS: 0.9% Normal Saline (1000mL) 1,000 ML 999 ML IV ×2 (21:20→21:50)
--- NOTE | 2024-11-28 21:35 | EKG12_ITS ---
Test Reason : LOOM FIXER Blood Pressure : */* mmHG Vent. Rate : 81 BPM Atrial Rate : 80 BPM P-R Int : * ms QRS Dur : 172 ms QT Int : 460 ms P-R-T Axes : * 224 40 degrees QTcB Int : 534 ms Ventricular-paced rhythm with occasional Premature ventricular complexes Abnormal ECG When compared with ECG of 24-Nov-2024 18:17, Premature ventricular complexes are now Present Vent. rate has increased by 10 bpm Confirmed by MYNOR YOUNG, LENA ([id number]), editorial manager MARY SKINNER ([id number]) on 11/30/2024 8:55:02 AM Referred By: Confirmed By: LENA LOWE MD
--- NOTE | 2024-11-28 21:36 | PCM.HOSP.N ---
Hospitalist Note Rapid response was called overhead at approximately 9:25 PM. Patient was standing up urinating when he suddenly had severe hypotension in the ~60/40 mmHg range. A review of his recent medications shows that he was recently given Entresto which is likely the culprit agent which has been held. He was bolused 2 L normal saline with labs and ABG done showing no acute pathologic changes other than mildly elevated troponin T of 58 ng/L with patient having no complaints related to chest pain. He was then transferred to PCU and ordered 25 g of IV albumin once to correct his hypotension with blood pressure of 91/65 mmHg at 2238 hrs.
[2024-11-28 21:38] LABS: Bedside Glucose 145 mg/dL (74-106)
[2024-11-28 21:45] LABS: Allen Test Positive; Base Excess -6 mmol/L (-2 to +2); Blood Gas Specimen Type ART; Mode Not entered; O2 Delivery Device Cannula; PO2 90 mmHG (75-100); SITE L Radial; SO2 97 % (95-99); Total Carbon Dioxide 20 mmol/L; pCO2 32.9 mmHg (35-45); pH 7.37 (7.35-7.45)
--- NOTE | 2024-11-28 21:52 | ED.RN ---
Patient was assisted to the bathroom. Patient began to slump forward and the nurse grabbed the patient and set him on her knee. Patient was unresponsive and patient was placed in wheel chair. Rapid response was called. Patient was placed in bed and was diaphoretic. Blood glucose was 145 and patient was hypotensive (69/40). Two IVs were placed and fluids were given. Patient became more responsive. Current BP is 85\53.
[2024-11-28 21:54] LABS: Absolute Lymphocyte Count 2.77 X10^3/uL (0.83-4.51); Absolute Neutrophil Count 5.8 X10^3/uL (2.0-7.7); Basophil# 0.05 X10^3/uL; Basophil% 0.5 % (0-1); Eosinophil# 0.14 X10^3/uL; Eosinophils% 1.4 % (0-5); Hematocrit 43.8 % (40-54); Hemoglobin 14.3 g/dL (13.0-16.5); Lymphocyte # 2.77 X10^3/ul (0.83-4.51); Lymphocyte % 28.4 % (19-41); Mean Corp Hgb Conc 32.6 g/dL (32-36); Mean Corpuscular Hgb 28.9 pg (27.0-32.0); Mean Corpuscular Volume 88.7 fL (80-94); Mean Platelet Vol. 9.9 fl (6.2-12.0); Monocyte# 0.97 X10^3/uL; Monocyte% 9.9 % (0-10); NRBC Flagged by Analyzer 0 % (0-5); Neutrophil # 5.78 X10^3/uL (2.7-7.7); Neutrophil % 59.3 % (47-70); Platelet Count 217 K/mm3 (150-450); RBC Distribution Width CV 15.2 % (11.6-14.6); RBC Distribution Width SD 48.8 fl (35.1-43.9); Red Blood Count 4.94 M/mm3 (4.6-6.2); White Blood Count 9.8 K/mm3 (4.4-11.0)
[2024-11-28 22:26] LABS: ALB/GLOB Ratio 0.5 RATIO (0.9-2.4); AST(SGOT) 27 U/L (<=37); Alanine Aminotransfer ALT/SGPT 15 U/L (<=46); Alkaline Phosphatase 81 U/L (40-129); Anion Gap 18 (5-15); BUN 30 mg/dL (4-19); BUN/Creat Ratio 19.4 RATIO (10-20); Calcium,Total 7.9 mg/dL (7.6-11.0); Carbon Dioxide 17.7 mmol/L (21.0-32.0); Chloride 103 mmol/L (98-108); Creatinine, Serum 1.56 mg/dL (0.70-1.20); EST Glomerular Filtration Rate 44 (>60); Estimated Creatinine Clearance 48.77 ml/min (50-250); Globulin 4.4 g/dL (2.2-4.2); Glucose 129 mg/dL (70-99); Potassium 3.6 mmol/L (3.3-5.1); Protein, Total 6.4 g/dL (5.9-8.4); Sodium Level 139 mmol/L (133-145); Total Bilirubin 0.85 mg/dL (0.00-1.30); Troponin T High Sensitivity 58 ng/L (<=22)
--- NOTE | 2024-11-28 22:55 | ED.RN ---
Nurse called , Courtney. Updated on current events regarding the rapid response and transfer to PCU.
--- NOTE | 2024-11-28 22:55 | PCM.HP.STD ---
[facility] General General Date of Admission: 11/24/24 Date of Service: 11/28/24 Chief Complaint: Iatrogenic Hypotension after Entresto in the setting of Post-stroke Debility. HPI Narrative LISA KAUFFMAN, is a 79 M with a past medical history of essential hypertension on sacubitril-losartan and furosemide, hyperlipidemia; on rosuvastatin, overweight; with a BMI of 29 this admission, KILLIAN; on BiPAP, history of atrial fibrillation; on amiodarone, digoxin and apixaban, history of arrhythmia; s/p PPM, history of carotid stenosis; s/p right CEA, DM-2; well-controlled on Jardiance with recent hemoglobin A1c of 6%, depression; on sertraline, BPH; on finasteride and tamsulosin, GERD; on omeprazole, OA and recent presentation to [facility] on November 16, 2024 with speech difficulties with CTA of the brain showing inhomogenous opacification of the petrous portion of the Right internal carotid artery suspicious for soft thrombus in the Left MCA occlusion with patient and transferred to [facility] for possible thrombectomy because he was outside the window for thrombolytics and he was on apixaban; s/p unsuccessful thrombectomy with patient intubated for neurogenic and hypoxic respiratory failure with subsequent extubation within ~48 hours with subsequent transthoracic echocardiogram showing LVEF ~75% with RV dilatation and RA dilatation and no valvular disease with MRI of the brain revealing large acute infarct within the Left middle cerebral artery distribution with additional punctate acute infarcts within the bilateral frontal lobes with clinically noted severe receptive and expressive aphasia with patient then admitted here to the acute rehabilitation unit on by Dr. Camargo on November 24, 2024 with patient noted to be very agitated and restless and not following commands with blood pressure markedly elevated due to agitation with patient then subsequently treated with Haldol 2 mg IM x 1 with patient stating intermittently that he wants to . According to the notes patient was set up for a minimum of 1 hour physical therapy at least 5 out of 7 days. On November 25, 2024 he was noted to have labile blood pressure from 126/83-162/112 mmHg with associated agitation requiring sedation after resting well the previous night with Seroquel. He had a UA on November 25, 2024 that revealed elevated leukocyte esterase of 500 with 50-100 white blood cells and 1+ bacteria with patient started on oral Augmentin 875 mg twice daily with urine cultures eventually turning positive for Enterococcus faecalis and postvoid residual noted to be ~220 cc and with Jardiance decreased to 10 mg daily to avoid hypoglycemia with a fasting blood sugar of only 77 in spite of eating ~50-75% of his meals with patient refusing therapy on Thursday and intermittently refusing medications but appearing to be in no distress. Then on the evening of November 28, 2024 he was given a dose of Entresto and then stood up to urinate with subsequent severe hypotension of approximately 69/40 mmHg systolic resulting in Rapid Response being called at approximately 9:30 PM. He was immediately treated with 2 L of normal saline bolus with blood pressure increased to the 80 mmHg range with patient noted to have cough productive of yellowish sputum and mild lethargy along with mild diaphoresis. His blood glucose was noted to be 145 mg/dL. He then was treated with albumin 25 g IV once with a increase in his blood pressure and no complaints of chest pain. His ABG revealed pH 7.37/ pCO2 32.9 mmHg/ PO2 90 mmHg/ HCO3 19 mmol/L at 97% saturation on 2L NC. His white blood cell count was 9.8K with a hemoglobin of 14.3 g/dL and platelet count of 217 K. His BUN/creatinine ratio was normal at 19.4 with a mildly elevated serum creatinine of 1.56 and a BUN of 30 mg/dL (up from his baseline of 1.28 mg/dL and 23 mg/dL on November 25, 2024). Finally, he was noted to have a mildly elevated initial troponin T of 58 ng/L with an EKG that revealed paced rhythm with no acute pathologic changes and incidentally noted low serum albumin of 2 g/dL suggestive of protein-calorie malnutrition in the setting of recent CVA with subsequent diminished oral intake. He was noted to have nausea and vomiting with 1 episode of bilious emesis shortly after arrival to PCU with no signs of respiratory distress or acute aspiration. He was then transferred to the PCU for further monitoring for for a stay of his expected to extend beyond 2 midnights. [facility] Medical History Pacemaker BPH associated with nocturia Right ventricular dilation Right atrial enlargement History of cardiomyopathy Obstructive sleep apnea Hypertension Dyslipidemia Atrial fibrillation, controlled Asthma Arthritis Home Medications ?Medication ?Instructions ?Recorded ?Last Taken ?Type acetaminophen 325 mg capsule 650 mg PO Q6H PRN pain 11/24/24 Unknown History amiodarone 400 mg tablet 400 mg PO DAILY heart 11/24/24 Unknown History apixaban 5 mg tablet (Eliquis) 5 mg PO BID heart 11/24/24 Unknown History aspirin 81 mg tablet,delayed 81 mg PO DAILY heart 11/24/24 Unknown History release (Ecotrin Low Strength) calcium 600 mg (as carbonate)-vit 1 tab PO DAILY vitamin 11/24/24 Unknown History D3 1,000 unit-vitamin K2 90 mcg tab cholecalciferol (vitamin D3) 25 25 mcg PO DAILY supp 11/24/24 Unknown History mcg (1,000 unit) capsule (Vitamin D3) digoxin 250 mcg (0.25 mg) tablet 250 mcg PO DAILY heart 11/24/24 Unknown History empagliflozin 25 mg tablet 25 mg PO DAILY dm 11/24/24 Unknown History (Jardiance) finasteride 5 mg tablet 5 mg PO DAILY bladder 11/24/24 Unknown History furosemide 40 mg tablet 40 mg PO DAILY diuretic 11/24/24 Unknown History omeprazole 10 mg capsule,delayed 20 mg PO DAILY gerd 11/24/24 Unknown History release polyethylene glycol 3350 8.5 gram 17 g PO DAILY constipation 11/24/24 Unknown History oral powder packet rosuvastatin 40 mg tablet 40 mg PO QHS cholesterol 11/24/24 Unknown History sacubitril 49 mg-valsartan 51 mg 1 tab PO BID heart 11/24/24 Unknown History tablet (Entresto) sertraline 20 mg/mL oral 25 mg PO DAILY mood 11/24/24 Unknown History concentrate tamsulosin 0.4 mg capsule 0.4 mg PO DAILY bladder 11/24/24 Unknown History Allergy/AdvReac Type Severity Reaction Status Date / Time No Known Allergies Allergy Verified 11/24/24 17:40 Family History unable to obtain Surgical History History of right-sided carotid endarterectomy Surgical History unable to obtain Social History household members: significant other housing: house Smoking Status: Never smoker ROS ROS Narrative Review of Systems: Constitutional: Patient denies fever or chills. Eyes: Patient denies changes in vision or discharge from eyes. ENT: Patient denies runny nose, sore throat or ear pain. Resp: Patient admits to cough productive of yellowish sputum but he denies shortness of breath. CV: Patient denies chest pain, palpitations, heart racing or lower extremity edema. GI: Patient was noted to have an episode of nausea and vomiting with bilious emesis shortly after arrival to PCU. He denies abdominal pain, diarrhea or constipation. : Patient denies dysuria or hematuria. MSK: Patient admits to generalized weakness but he denies arthralgias or myalgias. Skin: Patient was noted to have mild diaphoresis during his acute hypotensive episode. There was no evidence of rash, abscess, wounds or jaundice. Psych: Patient was noted to recently say he wanted to but he denies active suicidal or homicidal ideation. Neuro: Patient denies headache, paresthesias or new focal neurologic deficits. Allergy: Patient denies lip swelling, tongue swelling or urticaria. Hematology: Patient admits to easy bleeding on apixaban. Endocrinology: Patient denies polyuria, polydipsia, polyphagia or heat/cold intolerance. 14 point ROS otherwise negative several positives noted above in HPI. Vital Signs Vital Signs Vital Signs: 11/28/24 06:36 11/28/24 06:44 11/28/24 10:00 Temperature 98 F Temperature Source Temporal Pulse Rate 70 Pulse Rate [Lying] Pulse Rate [Sitting (for 1 minute prior to obtaining)] Pulse Rate [Standing (for 1 minute prior to obtaining)] Respiratory Rate 16 Respiratory Effort Normal Non-Labored Respiratory Depth Normal Respiratory Pattern Normal Blood Pressure 131/81 H Blood Pressure [Lying] Blood Pressure [Sitting (for 1 minute prior to obtaining)] Blood Pressure [Standing (for 1 minute prior to obtaining)] Blood Pressure Mean 97 Blood Pressure Mean [Lying] Blood Pressure Mean [Sitting (for 1 minute prior to obtaining)] Blood Pressure Mean [Standing (for 1 minute prior to obtaining)] Blood Pressure Source Monitor Blood Pressure Position Semi-Fowlers Blood Pressure Location Left Arm Pulse Ox 97 97 Oxygen Delivery Method Room Air Room Air 11/28/24 15:43 11/28/24 17:41 11/28/24 20:10 Temperature 98.2 F Temperature Source Temporal Pulse Rate 70 Pulse Rate [Lying] 69 Pulse Rate [Sitting (for 1 minute prior to obtaining)] 73 Pulse Rate [Standing (for 1 minute prior to obtaining)] 80 Respiratory Rate 16 Respiratory Effort Normal Non-Labored Respiratory Depth Normal Respiratory Pattern Normal Blood Pressure 126/83 H Blood Pressure [Lying] 134/86 H Blood Pressure [Sitting (for 1 minute prior to obtaining)] 137/89 H Blood Pressure [Standing (for 1 minute prior to obtaining)] 118/84 H Blood Pressure Mean 97 Blood Pressure Mean [Lying] 102 Blood Pressure Mean [Sitting (for 1 minute prior to obtaining)] 105 Blood Pressure Mean [Standing (for 1 minute prior to obtaining)] 95 Blood Pressure Source Monitor Blood Pressure Position Semi-Fowlers Blood Pressure Location Left Arm Pulse Ox 93 Oxygen Delivery Method Room Air 11/28/24 21:15 11/28/24 21:25 11/28/24 21:32 Temperature Temperature Source Pulse Rate 77 74 71 Pulse Rate [Lying] Pulse Rate [Sitting (for 1 minute prior to obtaining)] Pulse Rate [Standing (for 1 minute prior to obtaining)] Respiratory Rate Respiratory Effort Respiratory Depth Respiratory Pattern Blood Pressure 69/40 L 102/66 81/53 L Blood Pressure [Lying] Blood Pressure [Sitting (for 1 minute prior to obtaining)] Blood Pressure [Standing (for 1 minute prior to obtaining)] Blood Pressure Mean Blood Pressure Mean [Lying] Blood Pressure Mean [Sitting (for 1 minute prior to obtaining)] Blood Pressure Mean [Standing (for 1 minute prior to obtaining)] Blood Pressure Source Blood Pressure Position Blood Pressure Location Pulse Ox 91 Oxygen Delivery Method 11/28/24 21:48 11/28/24 22:06 11/28/24 22:15 Temperature Temperature Source Pulse Rate 70 72 69 Pulse Rate [Lying] Pulse Rate [Sitting (for 1 minute prior to obtaining)] Pulse Rate [Standing (for 1 minute prior to obtaining)] Respiratory Rate Respiratory Effort Respiratory Depth Respiratory Pattern Blood Pressure 79/48 L 87/53 L 81/52 L Blood Pressure [Lying] Blood Pressure [Sitting (for 1 minute prior to obtaining)] Blood Pressure [Standing (for 1 minute prior to obtaining)] Blood Pressure Mean Blood Pressure Mean [Lying] Blood Pressure Mean [Sitting (for 1 minute prior to obtaining)] Blood Pressure Mean [Standing (for 1 minute prior to obtaining)] Blood Pressure Source Blood Pressure Position Blood Pressure Location Pulse Ox 97 96 Oxygen Delivery Method 11/28/24 22:38 Temperature 96.4 F L Temperature Source Oral Pulse Rate 76 Pulse Rate [Lying] Pulse Rate [Sitting (for 1 minute prior to obtaining)] Pulse Rate [Standing (for 1 minute prior to obtaining)] Respiratory Rate 18 Respiratory Effort Respiratory Depth Respiratory Pattern Blood Pressure 91/65 Blood Pressure [Lying] Blood Pressure [Sitting (for 1 minute prior to obtaining)] Blood Pressure [Standing (for 1 minute prior to obtaining)] Blood Pressure Mean 73 Blood Pressure Mean [Lying] Blood Pressure Mean [Sitting (for 1 minute prior to obtaining)] Blood Pressure Mean [Standing (for 1 minute prior to obtaining)] Blood Pressure Source Monitor Blood Pressure Position Semi-Fowlers Blood Pressure Location Right Arm Pulse Ox 98 Oxygen Delivery Method Room Air Weight Weight: 232 lb 4 oz Body Mass Index (BMI) 29.0 Physical Exam Const alert, oriented x3, no apparent distress and average body habitus General Appearance: cooperative Orientation / Consciousness: lethargic HEENT normocephalic, head/scalp atraumatic, hearing grossly normal bilaterally and moist oral mucous membranes Eyes PERRL, EOMs intact bilaterally and conjunctivae normal Neck no lymphadenopathy, supple and no JVD Resp normal respiratory effort, no retractions, no use of accessory muscles and clear to auscultation bilaterally Cardio regular rate and regular rhythm GI normal to inspection, nondistended, normoactive bowel sounds, soft to palpation, non-tender and non-distended Extremity normal to inspection, full ROM and no clubbing, cyanosis or edema Skin Skin Narrative: Patient has evidence of rash, abscess, wounds or jaundice. Neuro oriented x3, CN's II-XII intact bilaterally and moves all extremities Sensorium / Orientation: awake, alert, oriented to person, oriented to place and oriented to time Speech: speech normal Psych affect normal Results Medical Records Data Attestation: I reviewed the patient's medical records Lab / Micro Data Attestation: I reviewed the patient's lab results. 11/28/24 21:45 11/28/24 21:45 Labs: Laboratory Results - last 24 hr 11/28/24 06:32: POC Glucose 103 11/28/24 11:43: POC Glucose 103 11/28/24 16:23: POC Glucose 93 11/28/24 21:21: POC Glucose 145 H 11/28/24 21:45: WBC 9.8, RBC 4.94, Hgb 14.3, Hct 43.8, MCV 88.7, MCH 28.9, MCHC 32.6, RDW Std Deviation 48.8 H, RDW Coeff of Yamileth 15.2 H, Plt Count 217, MPV 9.9, Immature Gran % (Auto) 0.500, Neut % (Auto) 59.3, Lymph % (Auto) 28.4, Wharton % (Auto) 9.9, Eos % (Auto) 1.4, Baso % (Auto) 0.5, Absolute Neuts (auto) 5.8, Absolute Lymphs (auto) 2.77, Nucleated RBC % 0, Sodium 139, Potassium 3.6, Chloride 103, Carbon Dioxide 17.7 L, Anion Gap 18 H, BUN 30 H, Creatinine 1.56 H, Estim Creat Clear Calc 48.77 L, Est GFR (MDRD) Non-Af 44 L, BUN/Creatinine Ratio 19.4, Glucose 129 H, Calcium 7.9, Magnesium 2.0, Total Bilirubin 0.85, AST 27, ALT 15, Alkaline Phosphatase 81, Troponin T High Sens 58 H*, Total Protein 6.4, Albumin 2.0 L, Globulin 4.4 H, Albumin/Globulin Ratio 0.5 L ABG Data ABG results: ABG 11/28/24 21:41 Specimen Type ART Sample Site L Radial pH 7.37 Bicarbonate Actual 19.0 L Total CO2 20 Base Excess -6 L O2 Saturation 97 O2 % 6.0 ABG pCO2 32.9 L ABG pO2 90 Erich Test Positive O2 Delivery Device Cannula Vent Mode Not entered Assessment & Plan Assessment/Plan (1) Iatrogenic hypotension: (2) Syncope: QUALIFIERS: Syncope type: unspecified Qualified Code(s): R55 - Syncope and collapse (3) Nausea and vomiting: QUALIFIERS: Vomiting type: unspecified Qualified Code(s): R11.2 - Nausea with vomiting, unspecified (4) Cystitis without hematuria: (5) Hypoalbuminemia: (6) Ischemic cerebrovascular accident (CVA): (7) Aphasia complicating stroke: (8) Obstructive sleep apnea: PLAN: Plan 1. Iatrogenic Hypotension after sacubitril-valsartan (Entresto) administration with subsequent syncopal event and Rapid Response - Admit to PCU. Aggressively volume resuscitate with normal saline IV fluid in addition to IV albumin to prevent volume overload. Sacubitril-valsartan (Entresto) has been held until further notice to prevent similar future episodes. Will check vital signs every hour until systolic blood pressure is consistently ~100 mmHg. 2. Elevated troponin T of 58 ng/L noted after #1 - Serialize troponin. Check chemical stress test in a.m. to evaluate for underlying ischemia. Continue aspirin and statin as previous. 3. Nausea and vomiting with bilious emesis with possible aspiration event complicating #1 & #2 - Start empiric IV piperacillin-tazobactam and check stat CT scan of chest to evaluate for infiltrate. 4. Recently diagnosed Acute Cystitis; without hematuria with urine cultures positive for Enterococcus faecalis compounding #1- #3 - Continue antibiotics as outlined in #3. 5. Hypoalbuminemia of 2 g/dL suggestive of protein-calorie malnutrition adding to the medical complexity of #1 - #4 - We still consult clinical dietitian for formal malnutrition evaluation with help appreciated in advance. 6. Recent presentation to [facility] on November 16, 2024 with speech difficulties with CTA of the brain showing inhomogenous opacification of the petrous portion of the Right internal carotid artery suspicious for soft thrombus in the Left MCA occlusion with patient and transferred to [facility] for possible thrombectomy because he was outside the window for thrombolytics and he was on apixaban; s/p unsuccessful thrombectomy with patient intubated for neurogenic and hypoxic respiratory failure with subsequent extubation within ~48 hours with subsequent transthoracic echocardiogram showing LVEF ~75% with RV dilatation and RA dilatation and no valvular disease with MRI of the brain revealing large acute infarct within the Left middle cerebral artery distribution with additional punctate acute infarcts within the bilateral frontal lobes with clinically noted severe receptive and expressive aphasia with patient then admitted here to the acute rehabilitation unit on by Dr. Camargo on November 24, 2024 with patient noted to be very agitated and restless and not following commands with blood pressure markedly elevated due to agitation with patient then subsequently treated with Haldol 2 mg IM x 1 with patient stating intermittently that he wants to adding to the burden of disease outlined from #1 - #5 - Noted. Patient should resume rehabilitation once his acute pathology has resolved. 7. Essential hypertension on sacubitril-losartan and furosemide - Hold scheduled antihypertensives in light of #1. 8. Hyperlipidemia; on rosuvastatin - Resume statin and check lipid profile in light of #2. 9. Overweight; with a BMI of 29 this admission plus KILLIAN; on CPAP - Weight loss will be recommended. Continue nocturnal CPAP as before. 10. History of atrial fibrillation; on amiodarone, digoxin and apixaban - Check digoxin level. Otherwise maintain amiodarone and apixaban as previous. 11. History of arrhythmia; s/p PPM - Noted with patient noted to be V-paced on EKG. 12. History of carotid stenosis; s/p Right CEA - Noted. 13. DM-2; well-controlled on Jardiance with recent hemoglobin A1c of 6% - Hold oral hypoglycemics until patient is able to resume oral intake. 14. Depression; on sertraline - Maintain current therapy with recent addition of Seroquel noted. 15. BPH; on finasteride and tamsulosin - Both of these agents are noted to have a side effect of syncope. If syncope recurs in spite of volume resuscitation 1 or both of these agents may need to be discontinued. 16. GERD; on omeprazole - Continue PPI. 17. OA - Give acetaminophen as needed pain or fever. 18. DVT prophylaxis - Lovenox 30 mg sq daily plus SCD's. Total time: Approximately (but not less than) 75 minutes. Charges/Coding Visit Charges Inpatient E&M: 84590 Init Hosp L3
--- NOTE | 2024-11-29 08:26 | CASEMGMT ---
Social Work SW received VMs from [facility] and [facility]. Both denied pt d/t appropriateness. Pt now admitted to PCU. Hand off given to PCU SW. Elizabeth Barnett IS ANALYST LEAD PRINTER
== END 2024-11-28 22:49 | disposition short-term general hospital (02) | DRG 57 ==
PROVIDERS: Internal Medicine; Admitting Provider Internal Medicine; Visit Provider Internal Medicine
DX: I69.320 Aphasia following cerebral infarction (principal); I42.9 Cardiomyopathy, unspecified; T83.511A Infection and inflammatory reaction due to indwelling urethral catheter, initial encounter; N30.00 Acute cystitis without hematuria; B95.2 Enterococcus as the cause of diseases classified elsewhere; I95.89 Other hypotension; E11.9 Type 2 diabetes mellitus without complications; F32.A Depression, unspecified; I10 Essential (primary) hypertension; I48.91 Unspecified atrial fibrillation; K21.9 Gastro-esophageal reflux disease without esophagitis; M19.90 Unspecified osteoarthritis, unspecified site; G47.33 Obstructive sleep apnea (adult) (pediatric); E78.5 Hyperlipidemia, unspecified; Z95.0 Presence of cardiac pacemaker; Z79.82 Long term (current) use of aspirin; Z68.29 Body mass index [BMI] 29.0-29.9, adult; Z79.84 Long term (current) use of oral hypoglycemic drugs; E66.3 Overweight; N40.1 Benign prostatic hyperplasia with lower urinary tract symptoms; Z79.899 Other long term (current) drug therapy; R35.1 Nocturia
CPT/HCPCS: 36415; 36600; 71250; 80053; 80162; 81001; 82803; 82962; 83735; 84100; 84484; 85025; 85027; 87077; 87086; 87088; 87186; 92507; 92523; 93005; 97110; 97112; 97116; 97162; 97166; 97530; 97535; 97802

== ENCOUNTER 2024-11-28 23:16 | Inpatient (IN) | payer MEDICARE, SELFPAY ==
[2024-11-28] MEDS: Albumin Human 25% (100 mL) 25 GM/100 ML BAG IV (23:11)
--- NOTE | 2024-11-28 23:51 | CT_ITS ---
PROCEDURE: CHEST WITHOUT CONTRAST 11/29/2024 REASON FOR EXAM: POSSIBLE ASPIRATION TECHNIQUE: Chest CT without contrast. Coronal and Sagittal reconstruction series were provided. One or more dose reduction techniques were used (e.g., Automated exposure control, adjustment of the mA and/or kV according to patient size, use of iterative reconstruction technique RADIATION DOSE SUMMARY: CTDlvol: 18.68 mGy DLP: 718.93 mGycm COMPARISON: None available FINDINGS: The central airways appear patent. Small amount of secretions seen at the right side of the lower trachea axial 54. Dependent and basilar platelike areas that may represent scar atelectasis. The lungs otherwise appear clear. Sequela of previous granulomatous disease. Franklin artifact from AICD. Ectatic thoracic aorta appears within limits on noncontrast imaging. No pericardial or pleural effusion. Heavy appearing coronary calcifications. Interposition of the hepatic flexure at the right hemidiaphragm. Possible partially imaged cyst possibly from the left kidney for example axial 135. Bilateral severe appearing shoulder osteoarthrosis. Bilateral sternoclavicular osteoarthrosis. Lower cervical spondylosis/discogenic change. Multilevel thoracic spondylosis/discogenic change. CT/Chest without Contrast IMPRESSION: The central airways appear patent. Small amount of secretions seen at the right side of the lower trachea near the right mainstem bronchus axial 54. Dependent and basilar platelike areas that may represent sca r atelectasis. The lungs otherwise appear clear. Reading Location: [id number]
--- NOTE | 2024-11-28 23:56 | NURSING ---
Patients orders for transfer were also entered under rehab account number prior to registration change. Discussed with Dr diego. Orders re entered to correct profile.
[2024-11-29] VITALS (13 sets, daily range): BP systolic 93–133; BP diastolic 65–93; PULSE 70–72; RESP 13–17; TEMP 36.1–36.7; O2SAT 94–100; BMI 29.0
[2024-11-29 00:37] LABS: Troponin T High Sens 2 HR 55 ng/L (<=22)
[2024-11-29 00:49] LABS: Vitamin B12 1103 pg/mL (180-914)
[2024-11-29] MEDS: Piperacil/Tazobactam 3.375 GM in 0.9% Normal Saline (50mL MB+) 50 ML IV ×2 (01:25→05:45)
[2024-11-29] MEDS: 0.9% Normal Saline (1000mL) 1,000 ML 100 ML IV (01:25)
[2024-11-29 02:01] LABS: Digoxin Level 1.28 ng/mL (0.00-2.00)
--- NOTE | 2024-11-29 02:40 | EKG12_ITS ---
Test Reason : AM EKG Blood Pressure : */* mmHG Vent. Rate : 70 BPM Atrial Rate : 70 BPM P-R Int : 168 ms QRS Dur : 180 ms QT Int : 482 ms P-R-T Axes : * 244 61 degrees QTcB Int : 520 ms AV dual-paced rhythm Abnormal ECG When compared with ECG of 28-Nov-2024 21:24, MANUAL COMPARISON REQUIRED DATA IS UNCONFIRMED Confirmed by MYNOR YOUNG, LENA ([id number]), brands editor MARY SKINNER ([id number]) on 11/30/2024 8:55:43 AM Referred By: Confirmed By: LENA LOWE MD
[2024-11-29 02:57] LABS: Troponin T High Sens 4 HR 58 ng/L (<=22)
[2024-11-29 03:05] LABS: FOLATES,SERUM (FOLIC ACID) 5.89 ng/mL (4.60-34.80)
[2024-11-29 07:49] LABS: Absolute Lymphocyte Count 0.86 X10^3/uL (0.83-4.51); Absolute Neutrophil Count 6.3 X10^3/uL (2.0-7.7); Basophil# 0.04 X10^3/uL; Basophil% 0.5 % (0-1); Eosinophil# 0.02 X10^3/uL; Eosinophils% 0.3 % (0-5); Hematocrit 41.3 % (40-54); Hemoglobin 13.2 g/dL (13.0-16.5); Lymphocyte # 0.86 X10^3/ul (0.83-4.51); Lymphocyte % 11.2 % (19-41); Mean Corpuscular Hgb 28.4 pg (27.0-32.0); Mean Platelet Vol. 10.1 fl (6.2-12.0); Monocyte# 0.45 X10^3/uL; Monocyte% 5.9 % (0-10); NRBC Flagged by Analyzer 0 % (0-5); Neutrophil # 6.28 X10^3/uL (2.7-7.7); Neutrophil % 81.7 % (47-70); Platelet Count 197 K/mm3 (150-450); RBC Distribution Width CV 15.3 % (11.6-14.6); RBC Distribution Width SD 49.3 fl (35.1-43.9); Red Blood Count 4.64 M/mm3 (4.6-6.2); White Blood Count 7.7 K/mm3 (4.4-11.0)
--- NOTE | 2024-11-29 07:50 | PN.HOSP_ITS ---
Objective Data Objective Data Vital Signs: Vital Signs Temp Pulse Resp BP Pulse Ox O2 Del Method O2 Flow Rate 97.6 F L 72 17 133/92 H 99 Room Air 0 11/29/24 07:44 11/29/24 07:44 11/29/24 07:44 11/29/24 07:44 11/29/24 07:44 11/29/24 07:44 11/29/24 01:00 Oxygen Flow Rate (L/min) 0 Oxygen Delivery Method Room Air Weight: 232 lb 5.875 oz Body Mass Index (BMI) 29.0 Intake & Output: Intake and Output for Last 24 Hours 11/27/24 11/28/24 11/29/24 23:59 23:59 23:59 Intake Total 150 / 150 Balance 150 / 150 Lab / Micro Data 11/29/24 06:32 11/29/24 06:32 Labs: Laboratory Results - last 24 hr 11/28/24 23:52: Hemoglobin A1c 6.0 H, Troponin T Hi Sens 2 Hr 55 H*, Vitamin B12 1103 H, Serum Folate 5.89, Digoxin 1.28 11/29/24 01:55: Troponin T Hi Sens 4Hr 58 H* 11/29/24 06:32: WBC 7.7, RBC 4.64, Hgb 13.2, Hct 41.3, MCV 89.0, MCH 28.4, MCHC 32.0, RDW Std Deviation 49.3 H, RDW Coeff of Yamileth 15.3 H, Plt Count 197, MPV 10.1, Immature Gran % (Auto) 0.400, Neut % (Auto) 81.7 H, Lymph % (Auto) 11.2 L, Ida % (Auto) 5.9, Eos % (Auto) 0.3, Baso % (Auto) 0.5, Absolute Neuts (auto) 6.3, Absolute Lymphs (auto) 0.86, Nucleated RBC % 0 Radiography Diagnostic Testing: Radiology Impression Chest CT 11/28/24 23:51 IMPRESSION: The central airways appear patent. Small amount of secretions seen at the right side of the lower trachea near the right mainstem bronchus axial 54. Dependent and basilar platelike areas that may represent scar atelectasis. The lungs otherwise appear clear. Reading Location: [facility] Physical Exam Narrative Seen and examined Patient was admitted directly from acute rehab for hypotension. As per the nursing reporting patient did not LOC. Rapid response was called in acute rehab last night. Patient has advanced language deficit, receptive and expressive aphasia along with depression and dementia and could not provide history. I talked to the patient's . Physical exam General: Alert, seems disoriented to time and place and person, Cooperative HEENT: Atraumatic, PERRLA, EOMI, Normocephalic Oral: No Gingival or Mucosal Lesions/ Ulcerations Neck: Supple, No JVD, Negative Carotid Bruits Chest wall/Lungs: Air entry diminished in bilateral lung bases. No crepitation/rhonchi Cardiovascular: Paced rhythm , Normal S1, Normal S2, No M/G/R Abdomen: Bowel Sounds Present, Soft, Non Tender, Non-Distended : No dysuria. No renal angle tenderness. No suprapubic tenderness. Extremities: No edema, Capillary Refill Less than 3 Seconds Skin: No rashes, No breakdown Musculoskeletal: No Tenderness to Palpation of Joints or Extremities Neurological: Patient does not follow commands for neuroexam. Severe language deficit. Does not seem motor weakness in lower extremities Psych/Mental Status: Flat affect Assessment & Plan Assessment/Plan (1) Iatrogenic hypotension: (2) Abnormal stress test: PLAN: Plan Patient was admitted from acute rehab after rapid response was called on 925 for severe hypotension, BP in the range of 60/40. The patient was recently given Entresto. A bolus of 2 L of IV fluid normal saline was given and blood pressure recovered 91/65 at 2238 hrs. Patient was further admitted 1. Iatrogenic Hypotension after sacubitril-valsartan (Entresto) administration with subsequent syncopal event and Rapid Response - Admit to PCU. Entresto was held. Aggressively volume resuscitate with normal saline IV fluid in addition to IV albumin to prevent volume overload. 2. Troponin elevation 58, 55 and 58 consistent with non-STEMI with abnormal stress test. Patient could not say about chest pain or shortness of breath or indicate. Patient had a pharmacological nuclear stress test was reported abnormal with moderate size defect in anterolateral wall extending to inferior lateral segment. Patient has severe neurological deficit from the stroke and other contraindication including abnormal kidney function is tributes from cardiac cath. This was discussed with patient's and the interior decorator paperhanging Dr. Kaur that medical management is appropriate and she accepted. Patient is started on baby aspirin, low-dose carvedilol. Patient already on statin continued. With hypotension and kidney dysfunction currently not candidate for DANNY/ARB 3. Aspiration event with potential for aspiration pneumonia: CT chest shows a small amount of secretions in the right side of the lower trachea near right main brainstem bronchus. Dependent and basilar platelike scarring atelectasis. Patient was started on IV Zosyn changed to IV Unasyn 4. Recently diagnosed Acute Cystitis; without hematuria with urine cultures positive for Enterococcus faecalis - Continue antibiotics which is effective antibiotic for Enterococcus 5. DM type II: A1c 6%. Hold oral hypoglycemics. Accu-Cheks 6. Left MCA occlusion with speech difficulty, receptive and expressive aphasia: Patient had CT of the brain in [facility] on November 16, 2024 where she was found soft thrombus in the left MCA and was transferred to [facility] and unsuccessful thrombectomy and on apixaban. 2D echo shows EF 75% with RV dilatation and RA enlargement and no valvular disease. MRI brain showed large acute infarct within the left MCA distribution with additional punctate acute infarct within bilateral frontal lobes. On acute rehab unit, NIH stroke scale was 6 mainly abnormal in LOC questions,, and and language deficit and dysarthria. PT OT and speech therapy 7. Chronic A-fib on amiodarone digoxin apixaban: Check digoxin level 8. Other comorbidities include essential hypertension, dyslipidemia, history of arrhythmia status post pacemaker, carotid stenosis status post right CEA, depression on sertraline, BPH on finasteride and tamsulosin Living will/advanced directive/end of life care/palliative/hospice care: Patient does have living will or advanced directive. His is power of ip technology transactions attorney for health. After discussion of benefits/risks procedures involved with full code, DNR CC arrest and DNR CC, I discussed with patient's in view that patient has receptive and expressive aphasia and she excepted DNR CC arrest with no intubation. Further after discussion with Dr. Camargo, she thinks patient is palliative/hospice care appropriate in view of large MCA infarct and moderate to severe neurological deficit. And with non-STEMI prognosis becomes worse. I talked to the patient's and see separate for palliative care and wants to discuss regarding hospice care with hospice nurse. Hospice consult placed Patient doesn't want artificial life support including intubation, tube feed, ventilator and/chest compression, central venous catheter, vasopressor and DC shock if needed Total time of the visit including total time spent in counseling or coordination of care, (more than 50% of the total time, spent in obtaining medical information from nurses and other ancillary care providers ,explaining to the patient about labs, imaging, diagnosis and management of active complex medical conditions), discussion with the interior decorator paperhanging, review of labs and imaging, explanation to patient's and discussion regarding palliative and hospice care is 45 minutes. Charges/Coding Visit Charges Inpatient E&M: 27887 Subs Hosp L3
[2024-11-29 08:46] LABS: ALB/GLOB Ratio 1.4 RATIO (0.9-2.4); AST(SGOT) 22 U/L (<=37); Alanine Aminotransfer ALT/SGPT 12 U/L (<=46); Albumin, Serum 3.7 g/dL (3.4-4.8); Alkaline Phosphatase 87 U/L (40-129); Anion Gap 13 (5-15); BUN 28 mg/dL (4-19); BUN/Creat Ratio 18.3 RATIO (10-20); Calcium,Total 8.5 mg/dL (7.6-11.0); Carbon Dioxide 21.1 mmol/L (21.0-32.0); Chloride 106 mmol/L (98-108); Cholesterol 72 mg/dL (<=200); Creatinine, Serum 1.55 mg/dL (0.70-1.20); EST Glomerular Filtration Rate 45 (>60); Estimated Creatinine Clearance 49.09 ml/min (50-250); Globulin 2.6 g/dL (2.2-4.2); Glucose 117 mg/dL (70-99); High Density Lipoprotein 29 mg/dL; Low Density Lipoprotein Calc. 30 mg/dL; Potassium 3.7 mmol/L (3.3-5.1); Protein, Total 6.3 g/dL (5.9-8.4); Sodium Level 140 mmol/L (133-145); Total Bilirubin 0.77 mg/dL (0.00-1.30); Triglycerides 67 mg/dL; Very Low Density Lipoprotein 13 mg/dL (5-40)
--- NOTE | 2024-11-29 12:09 | STRESSREP_ITS ---
Stress Test Report Pharmacologic myocardial perfusion stress test. 79-year-old male with a history of chest pain abnormal troponin Resting EKG demonstrates atrial fibrillation with underlying pacemaker rhythm with a rate of 71 bpm. Resting blood pressure is 130/80 mmHg. 0.4 mg of regadenoson was infused per usual protocol followed by rapid intravenous saline flush injection. Continuous EKG monitoring was performed. The maximum heart rate was 76 bpm which was 54% of max impacted heart rate the maximum workload was 1 metabolic equivalent. At rest there were no ST or T wave changes noted to suggest ischemia and at peak infusion nonspecific ST changes were noted which did not meet the criteria for ischemia. No clinical angina is noted. The final blood pressure was 104/60 mmHg. Myocardial perfusion protocol. 15 mCi of technetium 99m sestamibi was injected at rest. 0.4 mg of regadenoson was infused per usual protocol. At peak infusion 45 mCi of technetium 99m sestamibi was injected stress images were obtained stress and rest images were reconstructed and compared in the short axis vertical long and horizontal long axis. Gated images were also obtained. Perfusion SPECT analysis: Review of the stress images demonstrate normal uptake of tracer noted in all areas of the myocardium except for the anterolateral wall with a medium size d efect extending to the inferolateral segment. The resting images similar demonstrated improvement in the anterolateral and inferolateral segments suggesting a moderate amount of ischemia in this zone. Gated SPECT analysis: The gated ejection fraction is 60%. Conclusion: Abnormal pharmacologic myocardial perfusion stress test. Preserved ejection fraction. Anterolateral and inferolateral ischemia present.
--- NOTE | 2024-11-29 14:27 | CASEMGMT ---
HIMANSHU was informed by physician that patient's would like to talk with Hospice. HIMANSHU called patient's Courtney. HIMANSHU introduced self and role at [facility]. HIMANSHU let Courtney know that HIMANSHU Johnson in TCU said both psych units declined patient and that this is no longer being pursued. HIMANSHU then confirmed with Courtney that she would like to talk with Hospice. HIMANSHU explained how the process works and that someone will be contacting her. HIMANSHU then asked Courtney what the discharge plan is for patient. Courtney said he will have [place] go [place]. HIMANSHU reviewed patient's therapy notes and patient walked 300+ feet. HIMANSHU explained that insurance is not going to approve patient to go to a [place] as he is doing too well. Courtney asked if that means he has to come home. HIMANSHU told her that they could private pay at a [place] facility or they could apply for Medicaid. Courtney said they would have to apply for Medicaid. HIMANSHU told Courtney that SW will have Deborah call her and assist her with the application. Courtney said that would be fine. HIMANSHU called [facility] and made a referral. Lucero Frank WEBBING INSPECTOR NORAH
--- NOTE | 2024-11-29 14:30 | CASEMGMT ---
SW received a call from [facility] and patient's would like to meet with them Thursday at 430. HIMANSHU notified physician. HIMANSHU spoke with Deborah and asked her to please call patient's to assist her with Medicaid application. Lucero Frank MSW NORAH
[2024-11-29] MEDS: Carvedilol 3.125 MG TABLET PO (15:33)
[2024-11-29] MEDS: Ampicillin/Sulbactam 3 GM in 0.9% Normal Saline (100mL MB+) 100 ML IV ×2 (15:34→21:08)
[2024-11-29] MEDS: 0.9% Saline Lock 10 ML Syringe IV (15:34)
[2024-11-29] MEDS: Digoxin 250 MCG Tablet PO (15:34)
[2024-11-29] MEDS: Aspirin E.C. 81 MG Tablet PO (15:34)
[2024-11-29] MEDS: 0.9% Normal Saline (100mL Bag) 100 ML 15 ML IV (15:35)
--- NOTE | 2024-11-29 15:36 | NURSING ---
All meds given by student under supervision of instructor. Meds were scanned then computer would not save. IT called and logged this student out of computer. All meds were then redocumented with instructor present.
[2024-11-29 19:28] LABS: Amphetamine Urine NEGATIVE (<1000 ng/mL); Barbiturate Urine NEGATIVE (< 200 ng/mL); Benzodiazepine Urine NEGATIVE (< 200 ng/mL); Buprenorphine Urine NEGATIVE (< 200 ng/mL); Cocaine Urine NEGATIVE (< 300 ng/mL); Fentanyl, Urine NEGATIVE; Methadone Urine NEGATIVE (< 300 ng/mL); Opiates Urine NEGATIVE (< 300 ng/mL); Oxycodone, Urine NEGATIVE (< 100 ng/mL); PCP Urine NEGATIVE (< 25 ng/mL); THC Urine NEGATIVE (< 50 ng/mL)
[2024-11-29] MEDS: Atorvastatin Calcium 80 MG Tablet PO (21:08)
[2024-11-29] MEDS: APIXABAN 5 MG TABLET PO (21:08)
[2024-11-30 03:20] VITALS: BP 107/77; PULSE 70; RESP 16; TEMP 36.7; O2SAT 95
[2024-11-30 05:25] LABS: Absolute Neutrophil Count 3.4 X10^3/uL (2.0-7.7); Basophil# 0.06 X10^3/uL; Basophil% 1.1 % (0-1); Eosinophils% 1.8 % (0-5); Hemoglobin 12.9 g/dL (13.0-16.5); Lymphocyte % 25.1 % (19-41); Mean Corp Hgb Conc 32.3 g/dL (32-36); Mean Corpuscular Hgb 28.6 pg (27.0-32.0); Mean Corpuscular Volume 88.7 fL (80-94); Mean Platelet Vol. 9.7 fl (6.2-12.0); Monocyte# 0.54 X10^3/uL; Monocyte% 9.7 % (0-10); NRBC Flagged by Analyzer 0 % (0-5); Neutrophil # 3.44 X10^3/uL (2.7-7.7); Neutrophil % 61.8 % (47-70); Platelet Count 191 K/mm3 (150-450); RBC Distribution Width CV 15.2 % (11.6-14.6); RBC Distribution Width SD 48.8 fl (35.1-43.9); Red Blood Count 4.51 M/mm3 (4.6-6.2); White Blood Count 5.6 K/mm3 (4.4-11.0)
[2024-11-30 05:42] VITALS: BMI 29.9
[2024-11-30] MEDS: Ampicillin/Sulbactam 3 GM in 0.9% Normal Saline (100mL MB+) 100 ML IV ×3 (05:55→20:55)
[2024-11-30 06:07] LABS: Anion Gap 12 (5-15); BUN 24 mg/dL (4-19); BUN/Creat Ratio 18.3 RATIO (10-20); Calcium,Total 8.2 mg/dL (7.6-11.0); Carbon Dioxide 20.6 mmol/L (21.0-32.0); Chloride 108 mmol/L (98-108); Creatinine, Serum 1.32 mg/dL (0.70-1.20); EST Glomerular Filtration Rate 54 (>60); Estimated Creatinine Clearance 58.49 ml/min (50-250); Glucose 92 mg/dL (70-99); Potassium 3.2 mmol/L (3.3-5.1); Sodium Level 140 mmol/L (133-145)
[2024-11-30 09:20] VITALS: BP 123/83; PULSE 77; RESP 16; TEMP 36.7; O2SAT 94
[2024-11-30] MEDS: Polyethylene Glycol 3350 17 GM PACKET PO (09:28)
[2024-11-30] MEDS: Digoxin 250 MCG Tablet PO (09:28)
[2024-11-30] MEDS: Sertraline 50 MG Tablet PO (09:29)
[2024-11-30] MEDS: Carvedilol 3.125 MG TABLET PO ×2 (09:29→17:31)
[2024-11-30] MEDS: Finasteride 5 MG Tablet PO (09:29)
[2024-11-30] MEDS: Tamsulosin HCl 0.4 MG Capsule PO (09:29)
[2024-11-30] MEDS: Empagliflozin 25 MG Tablet PO (09:29)
[2024-11-30] MEDS: Pantoprazole Sodium 20 MG Tablet PO (09:29)
[2024-11-30] MEDS: Aspirin E.C. 81 MG Tablet PO (09:29)
[2024-11-30] MEDS: APIXABAN 5 MG TABLET PO ×2 (09:29→20:55)
--- NOTE | 2024-11-30 10:55 | CASEMGMT ---
HIMANSHU received a voice mail from patient's Courtney requesting a return call. HIMANSHU called Courtney back and she asked if she could talk with SW sometime this afternoon. Courtney asked if 330 would be okay. HIMANSHU told her that is fine and just go to the nurses station when she gets here. Lucero Frank TORCH SOLDERER NORAH
--- NOTE | 2024-11-30 15:02 | PCM.PN.HOSP ---
Reason for Visit Reason for Visit: Diagnoses Other hypotension (11/28/24) Abnormal result of other cardiovascular function study (11/28/24) Objective Data Objective Data Vital Signs: Vital Signs Temp Pulse Resp BP Pulse Ox O2 Del Method O2 Flow Rate 98.0 F 77 16 123/83 H 94 Nasal Cannula 2 11/30/24 09:20 11/30/24 09:20 11/30/24 09:20 11/30/24 09:20 11/30/24 09:20 11/30/24 09:20 11/30/24 13:08 Oxygen Flow Rate (L/min) 2 Oxygen Delivery Method Nasal Cannula Weight: 239 lb 13.807 oz Body Mass Index (BMI) 29.9 Intake & Output: Intake and Output for Last 24 Hours 11/28/24 11/29/24 11/30/24 23:59 23:59 23:59 Intake Total 1864 / 1864 352 / 352 Output Total 400 / 750 800 / 800 Balance 1464 / 1114 -448 / -448 Lab / Micro Data 11/30/24 04:38 11/30/24 04:38 Labs: Laboratory Results - last 24 hr 11/29/24 19:11: Urine Opiates Screen NEGATIVE, U Buprenorphine Qual NEGATIVE, Ur Oxycodone Screen NEGATIVE, Urine Methadone Screen NEGATIVE, Urine Fentanyl Screen NEGATIVE, Ur Barbiturates Screen NEGATIVE, Ur Phencyclidine Scrn NEGATIVE, Ur Amphetamines Screen NEGATIVE, U Benzodiazepines Scrn NEGATIVE, Urine Cocaine Screen NEGATIVE, U Cannabinoids Screen NEGATIVE 11/30/24 04:38: WBC 5.6, RBC 4.51 L, Hgb 12.9 L, Hct 40.0, MCV 88.7, MCH 28.6, MCHC 32.3, RDW Std Deviation 48.8 H, RDW Coeff of Yamileth 15.2 H, Plt Count 191, MPV 9.7, Immature Gran % (Auto) 0.500, Neut % (Auto) 61.8, Lymph % (Auto) 25.1, Whiteside % (Auto) 9.7, Eos % (Auto) 1.8, Baso % (Auto) 1.1 H, Absolute Neuts (auto) 3.4, Absolute Lymphs (auto) 1.40, Nucleated RBC % 0, Sodium 140, Potassium 3.2 L, Chloride 108, Carbon Dioxide 20.6 L, Anion Gap 12, BUN 24 H, Creatinine 1.32 H, Estim Creat Clear Calc 58.49, Est GFR (MDRD) Non-Af 54 L, BUN/Creatinine Ratio 18.3, Glucose 92, Calcium 8.2 Physical Exam Narrative Seen and examined Patient is doing appropriate for his age regarding walking balance but ability to comprehend, follow-up command and his speech is very compromised. BP 123/83. Hospice meeting at 4:30 PM Physical exam General: Awake. Orientation cannot be ascertained because of language deficit. HEENT: Hard of hearing. Atraumatic, PERRLA, EOMI, Normocephalic Oral: No Gingival or Mucosal Lesions/ Ulcerations Neck: Supple, No JVD, Negative Carotid Bruits Chest wall/Lungs: Air entry diminished in bilateral lung bases. No crepitation/rhonchi Cardiovascular: Paced rhythm , Normal S1, Normal S2, No M/G/R Abdomen: Bowel Sounds Present, Soft, Non Tender, Non-Distended : No dysuria. No renal angle tenderness. No suprapubic tenderness. Extremities: No edema, Capillary Refill Less than 3 Seconds Skin: No rashes, No breakdown Musculoskeletal: No Tenderness to Palpation of Joints or Extremities Neurological: Patient does not follow commands for neuroexam. Severe language deficit. Does not seem motor weakness in lower extremities Psych/Mental Status: Flat affect Assessment & Plan Assessment/Plan (1) Iatrogenic hypotension: (2) Abnormal stress test: PLAN: Plan Patient was admitted from acute rehab after rapid response was called on 925 for severe hypotension, BP in the range of 60/40. The patient was recently given Entresto. A bolus of 2 L of IV fluid normal saline was given and blood pressure recovered 91/65 at 2238 hrs. Patient was further admitted 1. Iatrogenic Hypotension after sacubitril-valsartan (Entresto) administration with subsequent syncopal event and Rapid Response - Admit to PCU. Entresto was held. Aggressively volume resuscitate with normal saline IV fluid in addition to IV albumin to prevent volume overload. 11/30: Hypotension resolved. BP 123/83. Heart rate 77, paced rhythm. 2. Troponin elevation 58, 55 and 58 consistent with non-STEMI with abnormal stress test. Patient could not say about chest pain or shortness of breath or indicate. Patient had a pharmacological nuclear stress test was reported abnormal with moderate size defect in anterolateral wall extending to inferior lateral segment. Patient has severe neurological deficit from the stroke and other contraindication including abnormal kidney function is tributes from cardiac cath. This was discussed with patient's and the diet kitchen cook Dr. Kaur that medical management is appropriate and she accepted. Patient is started on baby aspirin, low-dose carvedilol. Patient already on statin continued. With hypotension and kidney dysfunction currently not candidate for DANNY/ARB 11/30: Patient denies any chest pain or shortness of breath. 3. Aspiration event with potential for aspiration pneumonia: CT chest shows a small amount of secretions in the right side of the lower trachea near right main brainstem bronchus. Dependent and basilar platelike scarring atelectasis. Patient was started on IV Zosyn changed to IV Unasyn 4. Recently diagnosed Acute Cystitis; without hematuria with urine cultures positive for Enterococcus faecalis - Continue antibiotics which is effective antibiotic for Enterococcus CKD stage IIIa: Creatinine 1.28 on 11/25. Currently it is 1.32. Increased to 1.56 on admission. Does not meet criteria for BRADLY. 5. DM type II: A1c 6%. Hold oral hypoglycemics. Accu-Cheks 6. Left MCA occlusion with speech difficulty, receptive and expressive aphasia: Patient had CT of the brain in [place] ER on November 16, 2024 where she was found soft thrombus in the left MCA and was transferred to [facility] and unsuccessful thrombectomy and on apixaban. 2D echo shows EF 75% with RV dilatation and RA enlargement and no valvular disease. MRI brain showed large acute infarct within the left MCA distribution with additional punctate acute infarct within bilateral frontal lobes. On acute rehab unit, NIH stroke scale was 6 mainly abnormal in LOC questions,, and and language deficit and dysarthria. PT OT and speech therapy 7. Chronic A-fib on amiodarone digoxin apixaban: Check digoxin level 8. Other comorbidities include essential hypertension, dyslipidemia, history of arrhythmia status post pacemaker, carotid stenosis status post right CEA, depression on sertraline, BPH on finasteride and tamsulosin Living will/advanced directive/end of life care/palliative/hospice care: Patient does have living will or advanced directive. His is power of insurance defense attorney for health. After discussion of benefits/risks procedures involved with full code, DNR CC arrest and DNR CC, I discussed with patient's in view that patient has receptive and expressive aphasia and she excepted DNR CC arrest with no intubation. Further after discussion with Dr. Camargo, she thinks patient is palliative/hospice care appropriate in view of large MCA infarct and moderate to severe neurological deficit. And with non-STEMI prognosis becomes worse. I talked to the patient's and see separate for palliative care and wants to discuss regarding hospice care with hospice nurse. Hospice consult placed Patient doesn't want artificial life support including intubation, tube feed, ventilator and/chest compression, central venous catheter, vasopressor and DC shock if needed Total time of the visit including total time spent in counseling or coordination of care, (more than 50% of the total time, spent in obtaining medical information from nurses and other ancillary care providers ,explaining to the patient about labs, imaging, diagnosis and management of active complex medical conditions), discussion with the diet kitchen cook, review of labs and imaging, explanation to patient's and discussion regarding palliative and hospice care is 45 minutes. Charges/Coding Visit Charges Inpatient E&M: 54443 Subs Hosp L2
--- NOTE | 2024-11-30 15:38 | CASEMGMT ---
HIMANSHU spoke with Deborah who already spoke with patient's . Deborah said they are way over on income and resources. HIMANSHU spoke with patient's , Courtney. HIMANSHU introduced self and role at [facility]. Courtney is aware she will have to private pay. HIMANSHU provided Courtney with a list of nursing homes and their private pay prices. Courtney asked that a referral be made to [facility]. HIMANSHU let her know a referral will be made and HIMANSHU will follow up with her tomorrow. HIMANSHU asked paulette [place]/rola vice president planning to please send a referral to [facility]. Lucero Frank INDUSTRIAL ELECTRICAL TECHNICIAN NORAH
--- NOTE | 2024-11-30 16:11 | CASEMGMT ---
Addendum entered by Miroslava Sapp 12/01/24 11:26: Vivian notified that pt will return home and to cancel referral. Miroslava Sapp DC Planning Asst. Original Note: Discharge Planning Referral sent to [facility]. Miroslava Sapp DC Planning Asst.
[2024-11-30 20:50] VITALS: BP 127/90; PULSE 70; RESP 16; TEMP 36.6; O2SAT 99
[2024-11-30] MEDS: Atorvastatin Calcium 80 MG Tablet PO (20:55)
[2024-12-01 03:17] VITALS: BMI 29.9
[2024-12-01 03:30] VITALS: BP 135/90; PULSE 70; RESP 16; TEMP 36.3; O2SAT 100
[2024-12-01 05:09] LABS: Absolute Lymphocyte Count 1.39 X10^3/uL (0.83-4.51); Absolute Neutrophil Count 3.2 X10^3/uL (2.0-7.7); Basophil# 0.06 X10^3/uL; Basophil% 1.1 % (0-1); Eosinophil# 0.12 X10^3/uL; Eosinophils% 2.3 % (0-5); Hematocrit 40.3 % (40-54); Hemoglobin 12.9 g/dL (13.0-16.5); Lymphocyte # 1.39 X10^3/ul (0.83-4.51); Lymphocyte % 26.1 % (19-41); Mean Corpuscular Hgb 28.2 pg (27.0-32.0); Mean Corpuscular Volume 88.2 fL (80-94); Mean Platelet Vol. 9.6 fl (6.2-12.0); Monocyte# 0.51 X10^3/uL; Monocyte% 9.6 % (0-10); NRBC Flagged by Analyzer 0 % (0-5); Neutrophil # 3.23 X10^3/uL (2.7-7.7); Neutrophil % 60.5 % (47-70); Platelet Count 182 K/mm3 (150-450); RBC Distribution Width CV 15.2 % (11.6-14.6); RBC Distribution Width SD 48.5 fl (35.1-43.9); Red Blood Count 4.57 M/mm3 (4.6-6.2); White Blood Count 5.3 K/mm3 (4.4-11.0)
[2024-12-01 05:16] LABS: Anion Gap 12 (5-15); BUN 18 mg/dL (4-19); BUN/Creat Ratio 15.6 RATIO (10-20); Calcium,Total 8.1 mg/dL (7.6-11.0); Carbon Dioxide 20.8 mmol/L (21.0-32.0); Chloride 107 mmol/L (98-108); Creatinine, Serum 1.18 mg/dL (0.70-1.20); EST Glomerular Filtration Rate 62 (>60); Estimated Creatinine Clearance 65.35 ml/min (50-250); Glucose 86 mg/dL (70-99); Potassium 3.1 mmol/L (3.3-5.1); Sodium Level 139 mmol/L (133-145)
[2024-12-01] MEDS: Ampicillin/Sulbactam 3 GM in 0.9% Normal Saline (100mL MB+) 100 ML IV ×2 (05:44→14:34)
[2024-12-01] MEDS: 0.9% Saline Lock 10 ML Syringe IV (05:45)
--- NOTE | 2024-12-01 10:31 | CASEMGMT ---
HIMANSHU called Hospice to check on how the referral went. Patient's Courtney did not sign up with hospice. She would like patient to go to [facility] and get speech therapy. HIMANSHU updated physician and supervisor propellant charge loading. Awaiting response from [facility]. Lucero Frank AUDIO/VIDEO TECHNICIAN NORAH
--- NOTE | 2024-12-01 10:32 | PCM.DC ---
Discharge Instructions Diet Discharge Diet: 2000 mg Sodium Diet DC O2, CPAP, BIPAP needs Home O2 Discharge instructions: No Follow Up Care Test Results: Test results from this visit will be discussed in further detail at your follow-up appointment, if applicable. Discharge Plan Admission Admit Date/Time: 11/28/24 23:16 Primary Reason for Your Visit: recent Right MCA stroke Attending Provider: Romain Giang Consulting Providers: Kahlil Hayes; Kahlil Holden; Xochitl Bailey; Georgette Paris; Sol Martinez; Marisa Mahoney COMPOUNDING ASSISTANT; Chel Norris Instructions Additional Instructions / Restrictions: Entresto was held. Follow with PCP in 1 to 2 weeks to see whether it should be discontinued Discharge Orders/Prescriptions Prescriptions: New carvedilol 3.125 mg Tablet 3.125 mg PO BIDCM 30 Days Qty: 60 3RF amoxicillin-pot clavulanate 875-125 mg tablet 1 tab PO BID 5 Days Qty: 10 0RF Continued aspirin [Ecotrin Low Strength] 81 mg tablet,delayed release (DR/EC) 81 mg PO DAILY 30 Days Qty: 30 2RF Rx Instructions: For non-STEMI Eliquis 5 mg tablet 5 mg PO BID 30 Days Qty: 0 0RF Rx Instructions: Discontinue if platelet count drops less than 50,000 or hemoglobin less than 8 g% digoxin 250 mcg (0.25 mg) tablet 250 mcg PO DAILY Jardiance 25 mg tablet 25 mg PO DAILY finasteride 5 mg tablet 5 mg PO DAILY omeprazole 10 mg capsule,delayed release(DR/EC) 20 mg PO DAILY rosuvastatin 40 mg tablet 40 mg PO QHS tamsulosin 0.4 mg capsule 0.4 mg PO DAILY acetaminophen 325 mg capsule 650 mg PO Q6H PRN (Reason: pain) calcium carb-vitamin D3-vit K2 600 mg-1,000 unit-90 mcg tablet 1 tab PO DAILY cholecalciferol (vitamin D3) [Vitamin D3] 25 mcg (1,000 unit) capsule 25 mcg PO DAILY polyethylene glycol 3350 8.5 gram powder in packet 17 g PO DAILY sertraline 20 mg/mL concentrate 25 mg PO DAILY Changed furosemide 40 mg tablet 20 mg PO DAILY 30 Days Qty: 0 0RF amiodarone 400 mg tablet 200 mg PO DAILY 30 Days Qty: 0 0RF Held sacubitril-valsartan [Entresto] 49-51 mg tablet 1 tab PO BID Hold Instructions: Hold for 1 week. Patient was admitted with hypotensive Referrals / Follow Up: Xochitl Bailey MD [Med Staff - Active Staff] - Within 1 Week Choco Wills MD [Med Staff - Active Staff] - Within 1 Month (For non-STEMI, medical management) Sameer Cassidy MD [Non-Staff -Ordering Privileges] - Within 1 Month Disposition Disposition (needs filled in before D/C Order can be placed): Home Health Service
--- NOTE | 2024-12-01 10:32 | DCINST_ITS ---
Discharge Instructions Diet Discharge Diet: 2000 mg Sodium Diet Follow Up Care Test Results: Test results from this visit will be discussed in further detail at your follow- up appointment, if applicable. Discharge Plan Admission Admit Date/Time: 11/28/24 23:16 Primary Reason for Your Visit: recent Right MCA stroke Attending Provider: Romain Giang Consulting Providers: Kahlil Hayes; Kahlil Holden; Xochitl Bailey; eGorgette Paris; Sol Martinez; Marisa Mahoney NP; Chel Norris Discharge Orders/Prescriptions Prescriptions: No Action amiodarone 400 mg tablet 400 mg PO DAILY Eliquis 5 mg tablet 5 mg PO BID digoxin 250 mcg (0.25 mg) tablet 250 mcg PO DAILY Jardiance 25 mg tablet 25 mg PO DAILY finasteride 5 mg tablet 5 mg PO DAILY furosemide 40 mg tablet 40 mg PO DAILY omeprazole 10 mg capsule,delayed release(DR/EC) 20 mg PO DAILY rosuvastatin 40 mg tablet 40 mg PO QHS sacubitril-valsartan [Entresto] 49-51 mg tablet 1 tab PO BID tamsulosin 0.4 mg capsule 0.4 mg PO DAILY acetaminophen 325 mg capsule 650 mg PO Q6H PRN (Reason: pain) calcium carb-vitamin D3-vit K2 600 mg-1,000 unit-90 mcg tablet 1 tab PO DAILY cholecalciferol (vitamin D3) [Vitamin D3] 25 mcg (1,000 unit) capsule 25 mcg PO DAILY aspirin [Ecotrin Low Strength] 81 mg tablet,delayed release (DR/EC) 81 mg PO DAILY polyethylene glycol 3350 8.5 gram powder in packet 17 g PO DAILY sertraline 20 mg/mL concentrate 25 mg PO DAILY
[2024-12-01 10:42] VITALS: BP 138/96; PULSE 78; RESP 16; TEMP 36.7; O2SAT 98
[2024-12-01] MEDS: Finasteride 5 MG Tablet PO (10:44)
[2024-12-01] MEDS: Sertraline 50 MG Tablet PO (10:44)
[2024-12-01] MEDS: Pantoprazole Sodium 20 MG Tablet PO (10:44)
[2024-12-01] MEDS: Empagliflozin 25 MG Tablet PO (10:44)
[2024-12-01] MEDS: Digoxin 250 MCG Tablet PO (10:44)
[2024-12-01] MEDS: Carvedilol 3.125 MG TABLET PO ×2 (10:44→16:20)
[2024-12-01] MEDS: APIXABAN 5 MG TABLET PO (10:44)
[2024-12-01] MEDS: Tamsulosin HCl 0.4 MG Capsule PO (10:44)
[2024-12-01] MEDS: Aspirin E.C. 81 MG Tablet PO (10:45)
--- NOTE | 2024-12-01 11:11 | CASEMGMT ---
HIMANSHU called patient's Courtney and let her know [facility] would be able to accept patient. However, she would need to call their business objects analyst. Courtney let HIMANSHU know that there has been a change in plans. She spoke with her children last night and she has decided to take him home. She is open to home health or outpatient therapy for patient. HIMANSHU notified NIKOLAI ESQUIVEL. HIMANSHU will also notify physician. Lucero ALMAZAN
--- NOTE | 2024-12-01 14:45 | PCM.DC.SUM ---
Providers Date of Admission: 11/28/24 Date of Discharge: 12/01/24 Consultations 11/29/24 12:42 Consult: Hospice / Palliative Care Routine Consulting Provider: [facility] Reason for Consult: right large MCA and mild MN EMERGENT Consult: No MD Notified: Yes Date Notified: 11/29/24 Time Notified: 12:42 Method of Notification: Answering Service Comments:: SW handling consult. Reason For Visit: IATROGENIC HYPOTENSION AFTER ENTRESTO Diagnosis Discharge Diagnosis (1) Iatrogenic hypotension: Status: Acute Code(s): I95.89 - Other hypotension (2) Abnormal stress test: Status: Acute Code(s): R94.39 - Abnormal result of other cardiovascular function study Plan Patient was admitted from acute rehab after rapid response was called on 925 for severe hypotension, BP in the range of 60/40. The patient was recently given Entresto. A bolus of 2 L of IV fluid normal saline was given and blood pressure recovered 91/65 at 2238 hrs. Patient was further admitted 1. Iatrogenic Hypotension after sacubitril-valsartan (Entresto) administration with subsequent syncopal event and Rapid Response - Admit to PCU. Entresto was held. Aggressively volume resuscitate with normal saline IV fluid in addition to IV albumin to prevent volume overload. 11/30: Hypotension resolved. BP 123/83. Heart rate 77, paced rhythm. 12/01 hypotension resolved. Patient on low-dose carvedilol. 2. Troponin elevation 58, 55 and 58 consistent with non-STEMI with abnormal stress test. Patient could not say about chest pain or shortness of breath or indicate. Patient had a pharmacological nuclear stress test was reported abnormal with moderate size defect in anterolateral wall extending to inferior lateral segment. Patient has severe neurological deficit from the stroke and other contraindication including abnormal kidney function is tributes from cardiac cath. This was discussed with patient's and the intelligence director Dr. Kaur that medical management is appropriate and she accepted. Patient is started on baby aspirin, low-dose carvedilol. Patient already on statin continued. With hypotension and kidney dysfunction currently not candidate for DANNY/ARB 11/30: Patient denies any chest pain or shortness of breath. 12/01: Follow-up in [place] [facility] for medical management of non-STEMI 3. Aspiration event with potential for aspiration pneumonia: CT chest shows a small amount of secretions in the right side of the lower trachea near right main brainstem bronchus. Dependent and basilar platelike scarring atelectasis. Patient was started on IV Zosyn changed to IV Unasyn 12/01: Patient discharged on Augmentin for 5 more days 4. Recently diagnosed Acute Cystitis; without hematuria with urine cultures positive for Enterococcus faecalis - Continue antibiotics which is effective antibiotic for Enterococcus CKD stage IIIa: Creatinine 1.28 on 11/25. Currently it is 1.32. Increased to 1.56 on admission. Does not meet criteria for BRADLY. 5. DM type II: A1c 6%. Hold oral hypoglycemics. Accu-Cheks 6. Left MCA occlusion with speech difficulty, receptive and expressive aphasia: Patient had CT of the brain in [place] on November 16, 2024 where she was found soft thrombus in the left MCA and was transferred to [facility] and unsuccessful thrombectomy and on apixaban. 2D echo shows EF 75% with RV dilatation and RA enlargement and no valvular disease. MRI brain showed large acute infarct within the left MCA distribution with additional punctate acute infarct within bilateral frontal lobes. On acute rehab unit, NIH stroke scale was 6 mainly abnormal in LOC questions,, and and language deficit and dysarthria. PT OT and speech therapy 7. Chronic A-fib on amiodarone digoxin apixaban: Check digoxin level 12/01 : Continue digoxin. And apixaban. Amiodarone dose decreased to 100 mg daily 8. Other comorbidities include essential hypertension, dyslipidemia, history of arrhythmia status post pacemaker, carotid stenosis status post right CEA, depression on sertraline, BPH on finasteride and tamsulosin Living will/advanced directive/end of life care/palliative/hospice care: Patient does have living will or advanced directive. His is power of associate attorney for health. After discussion of benefits/risks procedures involved with full code, DNR CC arrest and DNR CC, I discussed with patient's in view that patient has receptive and expressive aphasia and she excepted DNR CC arrest with no intubation. Further after discussion with Dr. Camargo, she thinks patient is palliative/hospice care appropriate in view of large MCA infarct and moderate to severe neurological deficit. And with non-STEMI prognosis becomes worse. I talked to the patient's and see separate for palliative care and wants to discuss regarding hospice care with hospice nurse. Hospice consult placed Patient doesn't want artificial life support including intubation, tube feed, ventilator and/chest compression, central venous catheter, vasopressor and DC shock if needed Discharge medication reconciliation done. Discharge follow-up instructions completed. Discharge process discussed with the patient and all questions were answered to patient's satisfaction. Follow with PCP in 1 to 2 weeks Total time spent, exact 35 minutes on discharge meds reconciliation, examination, coordination of care with nurses and ancillary staff, review of imaging and blood test and discussion with the patient on follow-up instructions. Medications at Discharge Home Medications acetaminophen 325 mg capsule 650 mg PO Q6H PRN pain 11/24/24 calcium 600 mg (as carbonate)-vit D3 1,000 unit-vitamin K2 90 mcg tab 1 tab PO DAILY vitamin 11/24/24 cholecalciferol (vitamin D3) 25 mcg (1,000 unit) capsule (Vitamin D3) 25 mcg PO DAILY supp 11/24/24 digoxin 250 mcg (0.25 mg) tablet 250 mcg PO DAILY heart 11/24/24 empagliflozin 25 mg tablet (Jardiance) 25 mg PO DAILY dm 11/24/24 finasteride 5 mg tablet 5 mg PO DAILY bladder 11/24/24 omeprazole 10 mg capsule,delayed release 20 mg PO DAILY gerd 11/24/24 polyethylene glycol 3350 8.5 gram oral powder packet 17 g PO DAILY constipation 11/24/24 rosuvastatin 40 mg tablet 40 mg PO QHS cholesterol 11/24/24 sacubitril 49 mg-valsartan 51 mg tablet (Entresto) 1 tab PO BID heart 11/24/24 Held on 12/01/24. Instructions: Hold for 1 week. Patient was admitted with hypotensive sertraline 20 mg/mL oral concentrate 25 mg PO DAILY mood 11/24/24 tamsulosin 0.4 mg capsule 0.4 mg PO DAILY bladder 11/24/24 amiodarone 400 mg tablet 200 mg (1/2 x 400 mg) PO DAILY heart 30 days #0 tabs 12/01/24 amoxicillin 875 mg-potassium clavulanate 125 mg tablet 1 tab PO BID 5 days #10 tabs 12/01/24 apixaban 5 mg tablet (Eliquis) 5 mg PO BID heart 30 days #0 tabs 12/01/24 aspirin 81 mg tablet,delayed release (Ecotrin Low Strength) 81 mg PO DAILY heart 30 days #30 tabs 12/01/24 carvedilol 3.125 mg tablet 3.125 mg PO BIDCM 30 days #60 tabs 12/01/24 furosemide 40 mg tablet 20 mg (1/2 x 40 mg) PO DAILY leg swelling 30 days #0 tabs 12/01/24 Physical Exam Narrative Seen and examined Patient does not have problem with walking. But he has limited ability to comprehend, follow-up command and his speech is very compromised. BP 123/83. Hospice meeting at 4:30 PM. wants him to take to home with home health Physical exam General: Awake. Orientation cannot be ascertained because of language deficit. HEENT: Hard of hearing. Atraumatic, PERRLA, EOMI, Normocephalic Oral: No Gingival or Mucosal Lesions/ Ulcerations Neck: Supple, No JVD, Negative Carotid Bruits Chest wall/Lungs: Air entry diminished in bilateral lung bases. No crepitation/rhonchi Cardiovascular: Paced rhythm , Normal S1, Normal S2, No M/G/R Abdomen: Bowel Sounds Present, Soft, Non Tender, Non-Distended : No dysuria. No renal angle tenderness. No suprapubic tenderness. Extremities: No edema, Capillary Refill Less than 3 Seconds Skin: No rashes, No breakdown Musculoskeletal: No Tenderness to Palpation of Joints or Extremities Neurological: Patient does not follow commands for neuroexam. Severe language deficit. Does not seem motor weakness in lower extremities Psych/Mental Status: Flat affect Weight / BMI Weight Weight: 239 lb 3.225 oz Body Mass Index (BMI) 29.9 ABG / Lab / Microbiology Data 12/01/24 04:13 12/01/24 04:13 Laboratory: Laboratory Results - last 24 hr 12/01/24 04:13: WBC 5.3, RBC 4.57 L, Hgb 12.9 L, Hct 40.3, MCV 88.2, MCH 28.2, MCHC 32.0, RDW Std Deviation 48.5 H, RDW Coeff of [place] 15.2 H, Plt Count 182, MPV 9.6, Immature Gran % (Auto) 0.400, Neut % (Auto) 60.5, Lymph % (Auto) 26.1, [place] % (Auto) 9.6, Eos % (Auto) 2.3, Baso % (Auto) 1.1 H, Absolute Neuts (auto) 3.2, Absolute Lymphs (auto) 1.39, Nucleated RBC % 0, Sodium 139, Potassium 3.1 L, Chloride 107, Carbon Dioxide 20.8 L, Anion Gap 12, BUN 18, Creatinine 1.18, Estim Creat Clear Calc 65.35, Est GFR (MDRD) Non-Af 62, BUN/Creatinine Ratio 15.6, Glucose 86, Calcium 8.1 D/C Instructions Discharge Diet: 2000 mg Sodium Diet DC O2, CPAP, BIPAP Needs Home O2 Discharge instructions: No Meaningful Use Info Meaningful Use Meaningful Use Diagnoses (Choose all that apply): None applicable Ischemic Stroke Statin Dosing Therapy Reference: STATIN DOSE THERAPY REFERENCE: * Patients > 75 years receive moderate or high dose statin therapy. * Patients 75 years or YOUNGER should receive HIGH intensity statin dose unless contraindicated. You will be required to document reason for non-treatment if statin daily dose does not meet guidelines. HIGH DOSE STATIN THERAPY DAILY Atorvastatin > than or = to 40 mg Rosuvastatin > than or = to 20 mg Amlodipine + Atorvastatin > than or = to 2.5/40 mg Ezetimibe + Simvastatin 10/80 mg Simvastatin 80mg Discharge Plan Admission Admit Date/Time: 11/28/24 23:16 Primary Reason for Your Visit: recent Right MCA stroke Attending Provider: Romain Giang Consulting Providers: Kahlil Hayes; Kahlil Holden; Xochitl Bailey; Georgette Paris; Sol Martinez; Marisa Mahoney RADIOISOTOPE TECHNOLOGIST; Chel Norris Instructions Additional Instructions / Restrictions: Entresto was held. Follow with PCP in 1 to 2 weeks to see whether it should be discontinued Discharge Orders/Prescriptions Prescriptions: New carvedilol 3.125 mg Tablet 3.125 mg PO BIDCM 30 Days Qty: 60 3RF amoxicillin-pot clavulanate 875-125 mg tablet 1 tab PO BID 5 Days Qty: 10 0RF Continued aspirin [Ecotrin Low Strength] 81 mg tablet,delayed release (DR/EC) 81 mg PO DAILY 30 Days Qty: 30 2RF Rx Instructions: For non-STEMI Eliquis 5 mg tablet 5 mg PO BID 30 Days Qty: 0 0RF Rx Instructions: Discontinue if platelet count drops less than 50,000 or hemoglobin less than 8 g% digoxin 250 mcg (0.25 mg) tablet 250 mcg PO DAILY Jardiance 25 mg tablet 25 mg PO DAILY finasteride 5 mg tablet 5 mg PO DAILY omeprazole 10 mg capsule,delayed release(DR/EC) 20 mg PO DAILY rosuvastatin 40 mg tablet 40 mg PO QHS tamsulosin 0.4 mg capsule 0.4 mg PO DAILY acetaminophen 325 mg capsule 650 mg PO Q6H PRN (Reason: pain) calcium carb-vitamin D3-vit K2 600 mg-1,000 unit-90 mcg tablet 1 tab PO DAILY cholecalciferol (vitamin D3) [Vitamin D3] 25 mcg (1,000 unit) capsule 25 mcg PO DAILY polyethylene glycol 3350 8.5 gram powder in packet 17 g PO DAILY sertraline 20 mg/mL concentrate 25 mg PO DAILY Changed furosemide 40 mg tablet 20 mg PO DAILY 30 Days Qty: 0 0RF amiodarone 400 mg tablet 200 mg PO DAILY 30 Days Qty: 0 0RF Held sacubitril-valsartan [Entresto] 49-51 mg tablet 1 tab PO BID Hold Instructions: Hold for 1 week. Patient was admitted with hypotensive Referrals / Follow Up: Xochitl Bailey MD [Med Staff - Active Staff] - Within 1 Week Choco Wills MD [Med Staff - Active Staff] - Within 1 Month (For non-STEMI, medical management) Sameer Cassidy MD [Non-Staff -Ordering Privileges] - Within 1 Month Disposition Disposition (needs filled in before D/C Order can be placed): Home Health Service Charges/Coding Visit Charges Inpatient E&M: 22111 Disch Hosp >30min
--- NOTE | 2024-12-01 16:13 | CASEMGMT ---
RN CM note: Discharge order is in. Therapy evals reviewed (PT/OT/ST). Additional therapy recommended for all 3. Call placed to pt's Courtney. Introduced self and role. Discussed therapy and recommendations. Also discussed MCR requirements of being homebound. states pt is able to get in/out of vehicle to transport and is not homebound. Discussed OP therapy for PT/OT and ST. She inquired about locations near [place]. Made aware of [facility] for OP therapy and also verbal list of locations in [place]. She states most likely will take pt to [facility]. Made aware scripts will be placed in pt's room for her to take home and she can take to any location of choice, educated on process for setting up appts. She voices appreciation. aware Rx's have been sent to [facility] retail pharmacy. She would like [id number] and states for the pharmacy to call her to take payment over the phone. Call placed to the pharmacy and notified. denies having any other discharge needs or concerns. Tanya GRESHAM RN CM
[2024-12-01 16:16] VITALS: BP 124/98; PULSE 78; RESP 16; TEMP 36.6; O2SAT 98
[2024-12-01] MEDS: Potassium Chloride Oral Tablet 20 MEQ 40 MEQ PO (16:20)
--- NOTE | 2024-12-01 16:29 | PHA.DC.MC.R ---
Pharmacy [facility] has performed discharge medication reconciliation and counseling for this patient. 1. AUGMENTIN 875 PO BID X 5 DAYS 2. CARVEDILOL 3.125MG PO BID 3. POTASSIUM CHLORIDE 20MEA PO DAILY 4. HOLD ENTRESTO 5. AMIODARONE AND FUROSEMIDE DECREASED The patient's discharge medication list was reviewed for discrepancies and discrepancies were resolved. The patient was counseled on the following discharge medications and changes in medications for homegoing were reviewed. The Reason for Use, instructions for use, and potential side effects were reviewed for all new medications. The patient's questions regarding all of their medications were answered. The patient was able to verbally demonstrate an understanding of their discharge medications. Medications at Discharge Home Medications acetaminophen 325 mg capsule 650 mg PO Q6H PRN pain 11/24/24 calcium 600 mg (as carbonate)-vit D3 1,000 unit-vitamin K2 90 mcg tab 1 tab PO DAILY vitamin 11/24/24 cholecalciferol (vitamin D3) 25 mcg (1,000 unit) capsule (Vitamin D3) 25 mcg PO DAILY supp 11/24/24 digoxin 250 mcg (0.25 mg) tablet 250 mcg PO DAILY heart 11/24/24 empagliflozin 25 mg tablet (Jardiance) 25 mg PO DAILY dm 11/24/24 finasteride 5 mg tablet 5 mg PO DAILY bladder 11/24/24 omeprazole 10 mg capsule,delayed release 20 mg PO DAILY gerd 11/24/24 polyethylene glycol 3350 8.5 gram oral powder packet 17 g PO DAILY constipation 11/24/24 rosuvastatin 40 mg tablet 40 mg PO QHS cholesterol 11/24/24 sacubitril 49 mg-valsartan 51 mg tablet (Entresto) 1 tab PO BID heart 11/24/24 Held on 12/01/24. Instructions: Hold for 1 week. Patient was admitted with hypotensive sertraline 20 mg/mL oral concentrate 25 mg PO DAILY mood 11/24/24 tamsulosin 0.4 mg capsule 0.4 mg PO DAILY bladder 11/24/24 amiodarone 400 mg tablet 200 mg (1/2 x 400 mg) PO DAILY heart 30 days #0 tabs 12/01/24 amoxicillin 875 mg-potassium clavulanate 125 mg tablet 1 tab PO BID 5 days #10 tabs 12/01/24 apixaban 5 mg tablet (Eliquis) 5 mg PO BID heart 30 days #0 tabs 12/01/24 aspirin 81 mg tablet,delayed release (Ecotrin Low Strength) 81 mg PO DAILY heart 30 days #30 tabs 12/01/24 carvedilol 3.125 mg tablet 3.125 mg PO BIDCM 30 days #60 tabs 12/01/24 furosemide 40 mg tablet 20 mg (1/2 x 40 mg) PO DAILY leg swelling 30 days #0 tabs 12/01/24 potassium chloride 20 mEq tablet,extended release 20 meq PO DAILY 1 month #30 tabs 12/01/24
== END 2024-12-01 18:41 | disposition home or self-care (01) | DRG 280 ==
PROVIDERS: Admitting Provider Internal Medicine; Visit Provider Internal Medicine
DX: I95.89 Other hypotension (principal); I21.4 Non-ST elevation (NSTEMI) myocardial infarction; J69.0 Pneumonitis due to inhalation of food and vomit; I48.20 Chronic atrial fibrillation, unspecified; N30.00 Acute cystitis without hematuria; E11.22 Type 2 diabetes mellitus with diabetic chronic kidney disease; N18.31 Chronic kidney disease, stage 3a; F32.A Depression, unspecified; E78.5 Hyperlipidemia, unspecified; G47.33 Obstructive sleep apnea (adult) (pediatric); K21.9 Gastro-esophageal reflux disease without esophagitis; Z51.5 Encounter for palliative care; Z66 Do not resuscitate; R94.39 Abnormal result of other cardiovascular function study; Z95.0 Presence of cardiac pacemaker; N40.0 Benign prostatic hyperplasia without lower urinary tract symptoms; E66.3 Overweight; Z68.29 Body mass index [BMI] 29.0-29.9, adult; Z99.89 Dependence on other enabling machines and devices; T46.5X5A Adverse effect of other antihypertensive drugs, initial encounter; Y92.239 Unspecified place in hospital as the place of occurrence of the external cause
CPT/HCPCS: 36415; 71250; 78452; 80048; 80053; 80061; 80162; 80307; 82607; 82746; 83036; 84443; 84484; 85025; 92523; 92610; 93005; 93017; 94668; 97162; 97166; 97530; 97535; A9500; P9047; A4216; J0295; J2785